=== PATIENT | female | born 1975 | race Caucasian/White ===

== ENCOUNTER → 2016-11-24 | Outpatient (CLI) | payer MEDICARE ==
--- NOTE | 2016-11-24 14:30 | XR ---
EXAMINATION TYPE: XR lumbar spine 2 or 3V DATE OF EXAM: 11/24/2016 2:21 PM CLINICAL HISTORY: pain TECHNIQUE: Three views of the lumbar spine are submitted. COMPARISON: None. FINDINGS: There are 5 lumbar type vertebral bodies identified. The lumbar spine shows satisfactory alignment w ithout evidence of acute fracture or dislocation. Vertebral body heights are within normal limits. Disc spaces are within normal limits. The overlying soft tissue appears unremarkable. IMPRESSION: No acute fracture or dislocation is seen in the lumbar spine. ICD 10 NO FRACTURE, INITIAL EVALUATION
== END | disposition home or self-care (01) ==
LOC: RADXRMAIN 13:57
PROVIDERS: ATTEND Physician Assistant
DX: M54.5 Low back pain (principal)
CPT/HCPCS: 72100

== ENCOUNTER 2017-09-13 21:14 | Emergency (ER) | payer MEDICARE ==
[2017-09-13] MEDS ORDERED: ALBUTEROL NEBULIZED 2.5 MG/3 ML INHALATION STA (21:33)
[2017-09-13] MEDS ORDERED: IPRATROPIUM-ALBUTEROL 3 ML NEB INHALATION STA (21:38)
[2017-09-13] MEDS ORDERED: SODIUM CHLORIDE 0.9% 1,000 ML IV ONE (21:38)
[2017-09-13] MEDS ORDERED: methylPREDNISolone SOD SUCCI 125 MG/2 ML VIAL IV STA (21:38)
--- NOTE | 2017-09-13 21:51 | ED ---
General Adult HPI - General Chief complaint: Upper Respiratory Infection Stated complaint: cough,vomiting Time Seen by Provider: 09/13/17 21:30 Source: patient Mode of arrival: ambulatory Limitations: no limitations - History of Present Illness Initial comments: Is a 42-year-old female with a history of myasthenia gravis who presents emergency department for cough, nasal congestion, earaches. She states is been going on for the last week. She states it has not improved. She went to an urgent care and got doxycycline, albuterol, and prednisone 2 days ago however has not had any improvement in her symptoms so she decided to come in today. She denies any fevers or chills. No sick contacts. No abdominal pain. She does state that she coughs so hard sometimes that she vomits. No other acute complaints. - Related Data Home Medications Medication Instructions Recorded Confirmed Gamunex 75 gram IV Q14D 03/07/14 09/13/17 Sertraline [Zoloft] 200 mg PO DAILY 03/07/14 09/13/17 Albuterol Inhaler [Ventolin Hfa 1 - 2 puff INHALATION RT-Q6H PRN 09/13/17 Inhaler] Benzonatate [Tessalon Perles] 100 mg PO TID PRN 09/13/17 09/13/17 Doxycycline Monohydrate [Monodox] 100 mg PO Q12HR 09/13/17 09/13/17 Topiramate [Topamax] 200 mg PO Q8H 09/13/17 09/13/17 busPIRone HCL 15 mg PO BID 09/13/17 09/13/17 clonazePAM [KlonoPIN] 2 mg PO HS 09/13/17 09/13/17 cycloSPORINE [cycloSPORINE (GEQ 100 mg PO BID 09/13/17 09/13/17 for SandIMMUNE)] predniSONE See Taper PO DIRECTED 09/13/17 09/13/17 traZODone HCL 200 mg PO HS 09/13/17 09/13/17 Previous Rx's Medication Instructions Recorded Azithromycin [Zithromax Tri-William] 500 mg PO DAILY #10 tab 09/13/17 guaiFENesin-Coden 100-10MG/5ML 10 ml PO Q6HR PRN #160 ml 09/13/17 [Robitussin AC] Allergies Allergy/AdvReac Type Severity Reaction Status Date / Time No Known Allergies Allergy Verified 09/13/17 21:43 Review of Systems ROS Statement: Those systems with pertinent positive or pertinent negative responses have been documented in the HPI. ROS Other: All systems not noted in ROS Statement are negative. Past Medical History Past Medical History: Musculoskeletal Disorder Additional Past Medical History / Comment(s): 3 herniated discs, myasthenia gravis History of Any Multi-Drug Resistant Organisms: None Reported Past Surgical History: Hernia Repair, Hysterectomy, Orthopedic Surgery, Tonsillectomy, Tubal Ligation Additional Past Surgical History / Comment(s): knee surg, had thymectomy Past Anesthesia/Blood Transfusion Reactions: No Reported Reaction Past Psychological History: Depression Smoking Status: Never smoker Past Alcohol Use History: Occasional Past Drug Use History: None Reported - Past Family History Father Family Medical History: Cancer General Exam - General Exam Comments Initial Comments: Constitutional: Awake alert Appears comfortable Head: Normocephalic atraumatic Eyes: no conjunctival injection No scleral icterus EOMI ENT: Oropharynx is not erythematous, there is mild rhinorrhea and nasal mucosal edema, TMs clear bilaterally Neck: No JVD Supple Heart: Regular rate rhythm normal S1-S2 no murmurs Lungs: Crackles passed a cough with expiratory wheezes Abdomen: Soft nondistended nontender Extremities: Non edematous DP pulses intact Radial pulses intact Neuro: A&Ox3 No focal neurologic deficits Psych: Appropriate mood and affect Limitations: no limitations Course Vital Signs 09/13/17 09/13/17 09/13/17 21:24 21:45 22:02 Temperature 97.2 F L Pulse Rate 91 92 96 Respiratory 18 Rate Blood Pressure 140/85 O2 Sat by Pulse 100 Oximetry Medical Decision Making - Medical Decision Making Is a 42-year-old female who presented for cough and congestion for last week. X -rays performed and unremarkable. Patient is outside the window for Tamiflu and thus this was not checked. She was afebrile here. Due to her persistent coughing and paroxysms of coughing and concern for pertussis. Pertussis PCR was sent however the patient's antibiotic was switched from doxycycline to azithromycin 500 mg for the next 10 days. Was told to avoid young children. Was also given some cough medication for home. Told to monitor symptoms especially with her history of myasthenia gravis. If she had any worsening or changing symptoms she may return promptly to the emergency department. Family at bedside was also updated on this and agree with plan. All questions were answered. - Lab Data Result diagrams: 09/13/17 19:42 09/13/17 19:42 Lab Results 09/13/17 09/13/17 Range/Units 19:42 19:42 WBC 5.9 (3.8-10.6) k/uL RBC 4.27 (3.80-5.40) m/uL Hgb 13.3 (11.4-16.0) gm/dL Hct 40.2 (34.0-46.0) % MCV 94.2 (80.0-100.0) fL MCH 31.2 (25.0-35.0) pg MCHC 33.1 (31.0-37.0) g/dL RDW 15.0 (11.5-15.5) % Plt Count 274 (150-450) k/uL Neutrophils % 71 % Lymphocytes % 18 % Monocytes % 8 % Eosinophils % 0 % Basophils % 1 % Neutrophils # 4.2 (1.3-7.7) k/uL Lymphocytes # 1.0 (1.0-4.8) k/uL Monocytes # 0.5 (0-1.0) k/uL Eosinophils # 0.0 (0-0.7) k/uL Basophils # 0.0 (0-0.2) k/uL Poikilocytosis Slight Sodium 141 (137-145) mmol/L Potassium 3.9 (3.5-5.1) mmol/L Chloride 109 H (98-107) mmol/L Carbon Dioxide 19 L (22-30) mmol/L Anion Gap 13 mmol/L BUN 10 (7-17) mg/dL Creatinine 1.00 (0.52-1.04) mg/dL Est GFR (MDRD) Af Amer >60 (>60 ml/min/1.73 sqM) Est GFR (MDRD) Non-Af >60 (>60 ml/min/1.73 sqM) Glucose 93 (74-99) mg/dL Calcium 9.3 (8.4-10.2) mg/dL Total Bilirubin 0.4 (0.2-1.3) mg/dL AST 26 (14-36) U/L ALT 22 (9-52) U/L Alkaline Phosphatase 48 (38-126) U/L Total Protein 9.8 H (6.3-8.2) g/dL Albumin 4.2 (3.5-5.0) g/dL Disposition Clinical Impression: URI (upper respiratory infection), Cough Disposition: HOME SELF-CARE Condition: Stable Instructions: Upper Respiratory Infection (ED) Additional Instructions: Stop taking Doxycycline Prescriptions: Azithromycin [Zithromax Tri-William] 500 mg PO DAILY #10 tab guaiFENesin-Coden 100-10MG/5ML [Robitussin AC] 10 ml PO Q6HR PRN #160 ml PRN Reason: Cough Referrals: Tejinder Holt MD [Primary Care Provider] - 1-2 days
[2017-09-13 21:58] LABS: Basophils % (A) 1 %; Eosinophils % (A) 0 %; HCT 40.2 % (34.0-46.0); HGB 13.3 gm/dL (11.4-16.0); Lymphocytes % (A) 18 %; MCH 31.2 pg (25.0-35.0); MCHC 33.1 g/dL (31.0-37.0); MCV 94.2 fL (80.0-100.0); Mean Platelet Volume 8.3; Monocytes # (A) 0.5 k/uL (0-1.0); Monocytes % (A) 8 %; Neutrophils # (A) 4.2 k/uL (1.3-7.7); Neutrophils % (A) 71 %; Platelet Count 274 k/uL (150-450); Poikilocytosis Slight; RBC 4.27 m/uL (3.80-5.40); WBC 5.9 k/uL (3.8-10.6)
--- NOTE | 2017-09-13 22:25 | XR ---
EXAMINATION TYPE: XR chest 2V DATE OF EXAM: 09/13/2017 COMPARISON: NONE HISTORY: Cough TECHNIQUE: Frontal and lateral views of the chest are obtained. FINDINGS: Heart and mediastinum are normal. Lungs are clear. Costophrenic angles are clear. There ar e no hilar masses. There are sternal wires. There is left-sided central venous catheter with tip in t he right atrium. Bony thorax is intact. IMPRESSION: No active cardiopulmonary disease. Normal heart. No change. There has been apparent kassie arthur of old right sided central venous catheter compared to old exam.
[2017-09-13 22:29] LABS: Albumin 4.2 g/dL (3.5-5.0); Anion Gap 13 mmol/L; Calcium 9.3 mg/dL (8.4-10.2); Carbon Dioxide 19 mmol/L (22-30); Chloride 109 mmol/L (98-107); Glucose 93 mg/dL (74-99); Sodium 141 mmol/L (137-145); Total Bilirubin 0.4 mg/dL (0.2-1.3); Total Protein 9.8 g/dL (6.3-8.2)
[2017-09-13 22:33] LABS: ALT 22 U/L (9-52); AST 26 U/L (14-36); Alkaline Phosphatase 48 U/L (38-126); Blood Urea Nitrogen 10 mg/dL (7-17); Potassium 3.9 mmol/L (3.5-5.1)
[2017-09-13 23:17] VITALS: BP 136/87; PULSE 87; RESP 20; TEMP 98.7
[2017-09-16 10:27] LABS: Bordedella pertussis Not detected (Not detected); Bordetella holmesII Not detected (Not detected); Bordetella parapertussis Not detected (Not detected)
== END 2017-09-13 23:16 | disposition home or self-care (01) ==
LOC: EC 21:14
DX: J06.9 Acute upper respiratory infection, unspecified (principal); F32.9 Major depressive disorder, single episode, unspecified; Z79.52 Long term (current) use of systemic steroids; Z79.899 Other long term (current) drug therapy
CPT/HCPCS: 36415; 94640; 80053; 85025; 87798; 71020; 99284; 96374; 96361; J2930

== ENCOUNTER → 2017-11-12 | Outpatient (CLI) | payer MEDICARE ==
[2017-11-12 19:05] LABS: Basophils % (A) 1 %; Eosinophils # (A) 0.2 k/uL (0-0.7); Eosinophils % (A) 6 %; HCT 40.1 % (34.0-46.0); HGB 13.8 gm/dL (11.4-16.0); Lymphocytes # (A) 0.7 k/uL (1.0-4.8); Lymphocytes % (A) 27 %; MCH 31.4 pg (25.0-35.0); MCHC 34.4 g/dL (31.0-37.0); Mean Platelet Volume 8.3; Monocytes # (A) 0.3 k/uL (0-1.0); Monocytes % (A) 11 %; Neutrophils # (A) 1.5 k/uL (1.3-7.7); Neutrophils % (A) 53 %; Platelet Count 245 k/uL (150-450); Poikilocytosis Slight; RBC 4.41 m/uL (3.80-5.40); RDW 13.6 % (11.5-15.5); WBC 2.8 k/uL (3.8-10.6)
[2017-11-12 19:19] LABS: ALT 14 U/L (9-52); AST 17 U/L (14-36); Albumin 4.1 g/dL (3.5-5.0); Alkaline Phosphatase 45 U/L (38-126); Amylase 69 U/L (30-110); Anion Gap 11 mmol/L; Blood Urea Nitrogen 10 mg/dL (7-17); Calcium 8.9 mg/dL (8.4-10.2); Carbon Dioxide 20 mmol/L (22-30); Chloride 108 mmol/L (98-107); Cholesterol 166 mg/dL (<200); Glucose 78 mg/dL (74-99); HDL Cholesterol 29 mg/dL (40-60); LDL Cholesterol,Calculated 109 mg/dL (0-99); Lipase 257 U/L (23-300); Potassium 4.1 mmol/L (3.5-5.1); Sodium 139 mmol/L (137-145); Total Bilirubin 0.3 mg/dL (0.2-1.3); Total Protein 8.7 g/dL (6.3-8.2); Triglycerides 140 mg/dL (<150)
[2017-11-12 19:29] LABS: T4, Free (Free Thyroxine) 0.97 ng/dL (0.78-2.19)
[2017-11-13 01:27] LABS: Rheumatoid Factor <4 IU/mL (0-13)
[2017-11-13 12:46] LABS: ANA Pattern Centromere; ANA Pattern 2 See Footnote
== END | disposition home or self-care (01) ==
LOC: MMGSC 15:01
PROVIDERS: ATTEND Family Medicine
DX: Z00.00 Encounter for general adult medical examination without abnormal findings (principal); N39.0 Urinary tract infection, site not specified; R10.11 Right upper quadrant pain
CPT/HCPCS: 36415; 80053; 80061; 82150; 83690; 84439; 84443; 85025; 86038; 86039; 86431; 87086

== ENCOUNTER → 2017-11-27 | Outpatient (CLI) | payer MEDICARE ==
--- NOTE | 2017-11-27 11:11 | NM ---
EXAMINATION TYPE: NM hepatobiliary w CCK DATE OF EXAM: 11/27/2017 COMPARISON: NONE HISTORY: Pain TECHNIQUE: After the intravenous administration of 5.1 mCi Tc 99m Mebrofenin hepatobiliary scintigrap hy is performed. Immediate images post injection. FINDINGS: There is satisfactory initial accumulation of tracer by the liver. The gallbladder is visualized wit hin 6 minutes. The small bowel activity is noted within 20 minutes. At one hour CCK was administere d, patient was injected with 1.54 mcg of Kinevac, and gallbladder ejection fraction is calculated at 31 %. IMPRESSION: Diminished gallbladder ejection fraction which may reflect chronic cholecystitis and/or b iliary dyskinesia.
== END | disposition home or self-care (01) ==
LOC: RADNMMAIN 08:47
PROVIDERS: ATTEND Surgery
DX: K81.1 Chronic cholecystitis (principal); K82.8 Other specified diseases of gallbladder
CPT/HCPCS: 78227; A9537; J2805

== ENCOUNTER 2017-12-04 09:48 | Day surgery (SDC) | payer MEDICARE ==
[2017-12-03 08:48] VITALS: BMI 29.2
[~2017-12-04 09:48] MED LIST: DEXAMETHASONE SOD PHOSPHATE 10 MG/ML 1 ML VIAL IV ONE; HEPARIN SODIUM,PORCINE 5,000 UNIT/ML 1 ML VIAL SQ ONE; LACTATED RINGERS 1,000 ML IV SCH; MIDAZOLAM 2 MG/2 ML VIAL IV PRN; ONDANSETRON 4 MG/2 ML VIAL IVP ONE; SCOPOLAMINE 1.5MG/72HR PATCH TRANSDERM ONE; ceFAZolin IN SWFI 2 GM/20 ML SYRINGE IVP ONE
--- NOTE | 2017-12-04 11:58 | P.GSHP ---
History of Present Illness H&P Date: 12/04/17 Chief Complaint: Right upper quadrant pain This a 42-year-old female who's had complete the right quadrant pain. Her recent HIDA scan shows evidence of decreased ejection fraction consistent with biliary skin lesion and chronic cholecystitis. She presents today for laparoscopic cholecystectomy. Past Medical History Past Medical History: GERD/Reflux, Musculoskeletal Disorder Additional Past Medical History / Comment(s): 3 herniated discs, myasthenia gravis, hx migraines, History of Any Multi-Drug Resistant Organisms: None Reported Past Surgical History: Hernia Repair, Hysterectomy, Orthopedic Surgery, Tonsillectomy, Tubal Ligation Additional Past Surgical History / Comment(s): thymectomy, left knee arthroscopy , 3 port a cath/ 2 removed-currently has one Past Anesthesia/Blood Transfusion Reactions: No Reported Reaction Smoking Status: Never smoker - Past Family History Father Family Medical History: Cancer Medications and Allergies Home Medications Medication Instructions Recorded Confirmed Type Gamunex 75 gram IV Q14D 03/07/14 12/04/17 History Sertraline [Zoloft] 100 mg PO BID 03/07/14 12/04/17 History Albuterol Inhaler [Ventolin Hfa 1 - 2 puff INHALATION Q6H PRN 09/13/17 12/04/17 History Inhaler] busPIRone HCL 15 mg PO BID 09/13/17 12/03/17 History clonazePAM [KlonoPIN] 2 mg PO HS 09/13/17 12/03/17 History traZODone HCL 200 mg PO HS 09/13/17 12/03/17 History Ranitidine HCl [Zantac] 150 mg PO BID 12/03/17 12/04/17 History Topiramate [Topamax] 100 mg PO BID 12/03/17 12/03/17 History Allergies Allergy/AdvReac Type Severity Reaction Status Date / Time No Known Allergies Allergy Verified 12/04/17 10:57 Surgical - Exam Vital Signs Temp Pulse Resp BP Pulse Ox 97.0 F L 70 16 102/77 97 12/04/17 10:58 12/04/17 10:58 12/04/17 10:58 12/04/17 10:58 12/04/17 10:58 - General well developed, no distress - Eyes PERRL - ENT normal pinna - Neck no masses - Respiratory normal expansion - Cardiovascular Rhythm: regular - Abdomen Abdomen: soft, non tender Assessment and Plan Assessment: Chronic cholecystitis Abnormal HIDA scan We'll perform laparoscopic cholecystectomy.
[2017-12-04] MEDS ORDERED: fentaNYL (PF) 50 MCG/ML 2 ML AMP ONE (12:29)
[2017-12-04] MEDS ORDERED: MIDAZOLAM 2 MG/2 ML VIAL ONE (12:29)
[2017-12-04] MEDS ORDERED: KETOROLAC 30 MG/ML 1 ML VIAL ONE (12:29)
[2017-12-04] MEDS ORDERED: GLYCOPYRROLATE 0.2 MG/ML 2 ML VIAL ONE (12:29)
[2017-12-04] MEDS ORDERED: SUCCINYLCHOLINE CHLORIDE 100 MG/5 ML SYR IV ONE (12:29)
[2017-12-04] MEDS ORDERED: PROPOFOL 10 MG/ML 20 ML VIAL IV ONE (12:29)
[2017-12-04] MEDS ORDERED: LIDOCAINE 1% INJ 10MG/ML (20 ML MDV) ONE (12:29)
[2017-12-04] MEDS ORDERED: NEOSTIGMINE 1 MG/ML 10 ML VIAL ONE (12:29)
[2017-12-04] MEDS ORDERED: BUPIVACAINE (PF) 0.25% 30 ML VIAL SQ ONE (12:46)
[2017-12-04 13:15] VITALS: TEMP 97.5
--- NOTE | 2017-12-04 13:15 | P.OP ---
Date of Procedure: 12/04/17 Preoperative Diagnosis: Cholecystitis Postoperative Diagnosis: Cholecystitis Procedure(s) Performed: Laparoscopic cholecystectomy Anesthesia: SULMA Surgeon: Leno Lei Estimated Blood Loss (ml): 5 Pathology: other (Gallbladder) Condition: stable Disposition: PACU Description of Procedure: The patient was placed on the operating table. The patient received a general endotracheal tube anesthesia. The patients abdomen was prepped and draped in the usual sterile fashion. Through an infraumbilical stab incision, the fascia of the anterior abdominal wall was grasped with a pair of Kochers and then the Veress needle was placed in the peritoneal cavity. Position of the Veress needle was confirmed with positive drop test. The abdomen was then insufflated. After adequate insufflation, the 10 mm trocar was placed in the peritoneal cavity. Following this the laparoscope was placed in the peritoneal cavity. The patient was placed in the head-up, right side up position and then a 5 mm trocar was placed in the right lateral and right subcostal position under direct visualization. A 8 mm trocar was placed in the epigastric position. The gallbladder was grasped in the fundus and infundibulum. Traction on the gallbladder was placed in the lateral and the cephalad positions. The triangle of Calot was visualized.. The cystic duct was bluntly dissected until the union of the cystic duct and common bile duct was seen. The cystic duct was then divided and sealed with the Harmonic scissors. A PDS Endoloop was then placed throughout the cystic duct stump. The cystic artery divided and sealed with the Harmonic scissors. The gallbladder was then removed from the liver bed using Harmonic scissors. The gallbladder was then extracted through the epigastric port site. Operative field was checked for any bleeding spots and Harmonic scissors was used to coagulate the liver bed. The abdomen was irrigated. The trocars were removed. The skin was closed using interrupted 3-0 Vicryl suture. Dermabond dressing were applied. The patient tolerated the procedure well.
[2017-12-04] MEDS: fentaNYL (PF) 50 MCG/ML 2 ML AMP IV PRN ×2 (13:19→13:24)
[2017-12-04 13:31] VITALS: RESP 16
[2017-12-04] MEDS ORDERED: ONDANSETRON 4 MG/2 ML VIAL IVP ONE (13:39)
[2017-12-04] MEDS ORDERED: diphenhydrAMINE 50 MG/ML 1 ML VIAL IVP ONE ×2 (13:40→13:51)
[2017-12-04] MEDS ORDERED: LACTATED RINGERS 1,000 ML IV ONE (14:16)
[2017-12-04] MEDS ORDERED: HYDROcodone/APAP 7.5-325MG 1 EACH TAB PO ONE (14:26)
[2017-12-04 15:10] VITALS: BP 101/60; PULSE 55
== END 2017-12-04 15:25 | disposition home or self-care (01) ==
LOC: OR 09:48
PROVIDERS: ATTEND Surgery
DX: K81.1 Chronic cholecystitis (principal); K21.9 Gastro-esophageal reflux disease without esophagitis; G70.00 Myasthenia gravis without (acute) exacerbation; Z95.828 Presence of other vascular implants and grafts; Z79.899 Other long term (current) drug therapy
CPT/HCPCS: 47562; 88304; J2250; J1200; J1644; J1100; J2710; J2405; J2001; J3010; J1885; J0330; J2704; J0690

== ENCOUNTER → 2018-01-04 | Outpatient (CLI) | payer MEDICARE ==
--- NOTE | 2018-01-05 13:35 | MM ---
Reason for exam: screening (asymptomatic). Last mammogram was performed 1 year and 8 months ago. History: Family history of breast cancer in paternal aunt at age 70, breast cancer in paternal grandmother at age 70, breast cancer in maternal aunt at age 70, and breast cancer in maternal grandmother at age 70. Took hormonal contraceptives for 17 years beginning at age 18. Physical Findings: A clinical breast exam by your physician is recommended on an annual basis and results should be correlated with mammographic findings. MG 3D Screening Mammo W/Cad Bilateral CC and MLO view(s) were taken. Prior study comparison: April 23, 2016, bilateral MG 3d screening mammo w/cad. January 17, 2013, CAD bilateral diagnostic mammogram. The breast tissue is heterogeneously dense. This may lower the sensitivity of mammography. There is no discrete abnormality. ASSESSMENT: Negative, BI-RAD 1 RECOMMENDATION: Routine screening mammogram of both breasts in 1 year.
== END | disposition home or self-care (01) ==
LOC: RADMAMWWP 14:30
PROVIDERS: ATTEND Family Medicine
DX: Z12.31 Encounter for screening mammogram for malignant neoplasm of breast (principal)
CPT/HCPCS: 77063; 77067

== ENCOUNTER 2018-11-15 16:36 | Observation (INO) | payer MEDICARE ==
[2018-11-15] MEDS ORDERED: ASPIRIN 81 MG PO STA (17:03)
[2018-11-15] MEDS ORDERED: FAMOTIDINE 20 MG/2 ML VIAL IV STA (17:12)
--- NOTE | 2018-11-15 17:14 | ED ---
General Adult HPI <Mark Echols - Last Filed: 11/15/18 19:03> - General Source: patient, RN notes reviewed Mode of arrival: ambulatory Limitations: no limitations <Shelton Hendrix - Last Filed: 11/15/18 20:13> - General Chief complaint: Chest Pain Stated complaint: chest pain Time Seen by Provider: 11/15/18 17:01 - History of Present Illness Initial comments: 43-year-old female with a past medical history of GERD and myasthenia gravis presents to the emergency department for a chief complaint of chest pain 12 hours. Patient describes the pain as a pressure in her chest that radiates to her left arm. Patient states this has been constant since this morning. Patient denies pain radiating to her back or neck. Patient does admit to nausea states that she sits up this nausea feels worse. Patient does have a history of GERD and states she has not had this chest pain with GERD before however she does feel like she has heartburn. Patient does admit to vomiting twice earlier today. Patient denies past personal cardiac history. She denies any family history of cardiac disease. Patient denies smoking history, hyperlipidemia, hypertension. Patient has no other complaints at this time including shortness of breath, chest pain, abdominal pain, nausea or vomiting, headache, or visual changes. (Shelton Hendrix) - Related Data Home Medications Medication Instructions Recorded Confirmed Gamunex 75 gram IV Q14D 03/07/14 11/15/18 Sertraline [Zoloft] 100 mg PO BID 03/07/14 11/15/18 clonazePAM [KlonoPIN] 1 mg PO BID 09/13/17 11/15/18 traZODone HCL 200 mg PO HS 09/13/17 11/15/18 Topiramate [Topamax] 100 mg PO BID 12/03/17 11/15/18 Aspirin 325 mg PO DAILY 11/15/18 11/15/18 Allergies Allergy/AdvReac Type Severity Reaction Status Date / Time No Known Allergies Allergy Verified 11/15/18 17:48 Review of Systems ROS Other: All systems not noted in ROS Statement are negative. <Mark Echols - Last Filed: 11/15/18 19:03> ROS Other: All systems not noted in ROS Statement are negative. <Shelton Hendrix - Last Filed: 11/15/18 20:13> ROS Statement: Those systems with pertinent positive or pertinent negative responses have been documented in the HPI. Past Medical History Past Medical History: GERD/Reflux, Musculoskeletal Disorder Additional Past Medical History / Comment(s): 3 herniated discs, myasthenia gravis, hx migraines, History of Any Multi-Drug Resistant Organisms: None Reported Past Surgical History: Hernia Repair, Hysterectomy, Orthopedic Surgery, Tonsillectomy, Tubal Ligation Additional Past Surgical History / Comment(s): thymectomy, left knee arthroscopy , 3 port a cath/ 2 removed-currently has one Past Anesthesia/Blood Transfusion Reactions: No Reported Reaction Past Psychological History: Depression Smoking Status: Never smoker Past Alcohol Use History: None Reported Past Drug Use History: None Reported - Past Family History Father Family Medical History: Cancer <Shelton Hendrix - Last Filed: 11/15/18 20:13> General Exam Limitations: no limitations General appearance: alert, in no apparent distress Head exam: Present: atraumatic, normocephalic, normal inspection Eye exam: Present: normal appearance, PERRL, EOMI. Absent: scleral icterus, conjunctival injection, periorbital swelling ENT exam: Present: normal exam, mucous membranes moist, normal external ear exam Neck exam: Present: normal inspection, full ROM. Absent: tenderness, meningismus Respiratory exam: Present: normal lung sounds bilaterally. Absent: respiratory distress, wheezes, rales, rhonchi, stridor Cardiovascular Exam: Present: regular rate, normal rhythm, normal heart sounds. Absent: systolic murmur, diastolic murmur, rubs, gallop, clicks GI/Abdominal exam: Present: soft, normal bowel sounds. Absent: distended, tenderness (no upper abdominal tenderness noted. no lower abdominal tenderness) , guarding, rebound, rigid Neurological exam: Present: alert, oriented X3, CN II-XII intact Psychiatric exam: Present: normal affect, normal mood <Shelton Hendrix - Last Filed: 11/15/18 20:13> Course <Mark Echols - Last Filed: 11/15/18 19:03> <Shelton Hendrix - Last Filed: 11/15/18 20:13> Vital Signs 11/15/18 11/15/18 11/15/18 16:40 17:48 19:20 Temperature 97.7 F 97.7 F 97.9 F Pulse Rate 84 85 78 Respiratory 18 16 18 Rate Blood Pressure 157/81 131/95 103/75 O2 Sat by Pulse 100 98 99 Oximetry - Reevaluation(s) Reevaluation #1: 11/15/18 19:04 ARANZA supervision: I proceeded [id number] evaluation the patient I did discuss case with Dr. Bliss patient will be admitted for evaluation of chest pain consistent with unstable angina. I do agree with the assessment and plan (Mark Echols) EKG Findings - EKG Comments: EKG Findings:: EKG shows a normal sinus rhythm with a ventricular rate of 83, AK interval 136, QTC 444, no evidence of ST elevation or depression. <Shelton Hendrix - Last Filed: 11/15/18 20:13> Medical Decision Making - Lab Data Result diagrams: 11/15/18 17:30 11/15/18 17:30 <Mark Echols - Last Filed: 11/15/18 19:03> - Lab Data Result diagrams: 11/15/18 17:30 11/15/18 17:30 <Shelton Hendrix - Last Filed: 11/15/18 20:13> - Medical Decision Making 43-year-old female presents to the emergency department for a chief complaint of chest pressure with radiating pain to the left arm 12 hours. Denies radiating pain to the back or neck. Does admit to nausea as well as vomiting earlier this morning. Patient states she does have a history of heartburn but has never had chest pressure with this. No family history of cardiac disease or personal history of cardiac disease. Denies smoking hyperlipidemia, hypertension. No significant shortness of breath. Exam is generally under remarkable. No abdominal tenderness. There is some reproduciblilty noted to the left chest. EKG shows a normal sinus rhythm with a ventricular rate of [address] elevation or depression. CBC CMP are unremarkable. Troponin less than 0.012. D-dimer 0.29. Within normal limits. Amylase and lipase unremarkable. Given the nature patient's pain including pressure as well as her age she will be admitted for trending troponins and cardiology consultation (Shelton Hendrix) - Lab Data Lab Results 11/15/18 11/15/18 11/15/18 Range/Units 17:30 17:30 17:30 WBC 4.9 (3.8-10.6) k/uL RBC 4.71 (3.80-5.40) m/uL Hgb 14.5 (11.4-16.0) gm/dL Hct 44.1 (34.0-46.0) % MCV 93.6 (80.0-100.0) fL MCH 30.8 (25.0-35.0) pg MCHC 32.9 (31.0-37.0) g/dL RDW 12.9 (11.5-15.5) % Plt Count 230 (150-450) k/uL Neutrophils % 62 % Lymphocytes % 23 % Monocytes % 10 % Eosinophils % 3 % Basophils % 0 % Neutrophils # 3.0 (1.3-7.7) k/uL Lymphocytes # 1.1 (1.0-4.8) k/uL Monocytes # 0.5 (0-1.0) k/uL Eosinophils # 0.2 (0-0.7) k/uL Basophils # 0.0 (0-0.2) k/uL PT 10.2 (9.0-12.0) sec INR 0.9 (<1.2) APTT 22.0 (22.0-30.0) sec D-Dimer 0.29 (<0.60) mg/L FEU Sodium 138 (137-145) mmol/L Potassium 4.2 (3.5-5.1) mmol/L Chloride 109 H (98-107) mmol/L Carbon Dioxide 22 (22-30) mmol/L Anion Gap 7 mmol/L BUN 16 (7-17) mg/dL Creatinine 1.05 H (0.52-1.04) mg/dL Est GFR (CKD-EPI)AfAm 76 (>60 ml/min/1.73 sqM) Est GFR (CKD-EPI)NonAf 66 (>60 ml/min/1.73 sqM) Glucose 86 (74-99) mg/dL Calcium 9.0 (8.4-10.2) mg/dL Magnesium 2.0 (1.6-2.3) mg/dL Total Bilirubin 0.3 (0.2-1.3) mg/dL AST 17 (14-36) U/L ALT 22 (9-52) U/L Alkaline Phosphatase 48 (38-126) U/L Troponin I (0.000-0.034) ng/mL Total Protein 8.6 H (6.3-8.2) g/dL Albumin 4.1 (3.5-5.0) g/dL Amylase 69 (30-110) U/L Lipase 302 H (23-300) U/L 11/15/18 Range/Units 17:30 WBC (3.8-10.6) k/uL RBC (3.80-5.40) m/uL Hgb (11.4-16.0) gm/dL Hct (34.0-46.0) % MCV (80.0-100.0) fL MCH (25.0-35.0) pg MCHC (31.0-37.0) g/dL RDW (11.5-15.5) % Plt Count (150-450) k/uL Neutrophils % % Lymphocytes % % Monocytes % % Eosinophils % % Basophils % % Neutrophils # (1.3-7.7) k/uL Lymphocytes # (1.0-4.8) k/uL Monocytes # (0-1.0) k/uL Eosinophils # (0-0.7) k/uL Basophils # (0-0.2) k/uL PT (9.0-12.0) sec INR (<1.2) APTT (22.0-30.0) sec D-Dimer (<0.60) mg/L FEU Sodium (137-145) mmol/L Potassium (3.5-5.1) mmol/L Chloride (98-107) mmol/L Carbon Dioxide (22-30) mmol/L Anion Gap mmol/L BUN (7-17) mg/dL Creatinine (0.52-1.04) mg/dL Est GFR (CKD-EPI)AfAm (>60 ml/min/1.73 sqM) Est GFR (CKD-EPI)NonAf (>60 ml/min/1.73 sqM) Glucose (74-99) mg/dL Calcium (8.4-10.2) mg/dL Magnesium (1.6-2.3) mg/dL Total Bilirubin (0.2-1.3) mg/dL AST (14-36) U/L ALT (9-52) U/L Alkaline Phosphatase (38-126) U/L Troponin I <0.012 (0.000-0.034) ng/mL Total Protein (6.3-8.2) g/dL Albumin (3.5-5.0) g/dL Amylase (30-110) U/L Lipase (23-300) U/L Disposition <Mark Echols - Last Filed: 11/15/18 19:03> Is patient prescribed a controlled substance at d/c from ED?: No Time of Disposition: 19:02 <Shelton Hendrix - Last Filed: 11/15/18 20:13> Clinical Impression: Chest pain Disposition: ADMITTED IP TO THIS HOSP Condition: Fair
--- NOTE | 2018-11-15 18:02 | XR ---
EXAMINATION TYPE: XR chest 2V DATE OF EXAM: 11/15/2018 COMPARISON: Chest x-ray September 13, 2017 HISTORY: Chest pain. TECHNIQUE: Frontal and lateral views of the chest are obtained. FINDINGS: There is stable left subclavian Mediport catheter. Overlying sternal wires are redemonstrat ed. There is no focal air space opacity, pleural effusion, or pneumothorax seen. The cardiac silhou ette size is within normal limits. The osseous structures are intact. IMPRESSION: No acute cardiopulmonary process. No significant change from prior.
[2018-11-15] MEDS ORDERED: MORPHINE SULFATE 2 MG/ML SYRINGE IVP STA (18:05)
[2018-11-15 18:07] LABS: Albumin 4.1 g/dL (3.5-5.0); D-Dimer 0.29 mg/L FEU (<0.60); INR 0.9 (<1.2); Potassium 4.2 mmol/L (3.5-5.1); Prothrombin Time 10.2 sec (9.0-12.0); Total Bilirubin 0.3 mg/dL (0.2-1.3); Total Protein 8.6 g/dL (6.3-8.2)
[2018-11-15 18:08] LABS: Basophils % (A) 0 %; Eosinophils # (A) 0.2 k/uL (0-0.7); Eosinophils % (A) 3 %; HCT 44.1 % (34.0-46.0); HGB 14.5 gm/dL (11.4-16.0); Lymphocytes # (A) 1.1 k/uL (1.0-4.8); Lymphocytes % (A) 23 %; MCH 30.8 pg (25.0-35.0); MCHC 32.9 g/dL (31.0-37.0); MCV 93.6 fL (80.0-100.0); Mean Platelet Volume 7.1; Monocytes # (A) 0.5 k/uL (0-1.0); Monocytes % (A) 10 %; Neutrophils % (A) 62 %; Platelet Count 230 k/uL (150-450); RBC 4.71 m/uL (3.80-5.40); RDW 12.9 % (11.5-15.5); WBC 4.9 k/uL (3.8-10.6)
[2018-11-15] MEDS ORDERED: NITROGLYCERIN SL TABS 0.4 MG TAB SUBLINGUAL PRN (18:58)
[2018-11-15] MEDS ORDERED: MORPHINE SULFATE 2 MG/ML SYRINGE IVP PRN (19:00)
[2018-11-15] MEDS ORDERED: ONDANSETRON 4 MG/2 ML VIAL IVP PRN (19:01)
[2018-11-15] MEDS ORDERED: traZODone HCL 100 MG TAB PO SCH (21:00)
--- NOTE | 2018-11-15 21:17 | P.HPIM ---
History of Present Illness H&P Date: 11/15/18 Chief Complaint: chest pain 43 year old female with history of MG, GERD patient presented with constant left sided chest pain, 8/10 in severity , pressure like in nature with stabbing pain when taking deep breath or pressing against her left chest, pain has been persistent , radiating to left shoulder and neck, associated with nausea, vomiting once NBNB, light headedness, denies any sweating or palpitations, denies any injuries, coughing or similar pain in the past. denies any fevers, or chills. she reports that pain gets worse when leaning forward, but pain does not resolve with rest. She claims that she woke up with this pain, and has lasted until now at time of interview 8 PM for about 12 hours now , she was only able to get some relief with morphine in the ED and is requesting more for later tonight. later today, she was driving to the grocery store when pain worsened and now was associated with SOB, her mother suggested to her that she should go to the hospital. She has history of MG, and last IVIg dose was Thursday which she gets every two weeks. She denies any smoking, or cardiac history. no family history of premature CAD. She reports that normally her BP is in the 90/60 range. initial workup in the ED was unremarkable, she was admitted under observation Review of Systems Pertinent positives as noted in HPI. All other systems were reviewed and are negative Past Medical History Past Medical History: GERD/Reflux, Musculoskeletal Disorder Additional Past Medical History / Comment(s): 3 herniated discs, myasthenia gravis, hx migraines, History of Any Multi-Drug Resistant Organisms: None Reported Past Surgical History: Hernia Repair, Hysterectomy, Orthopedic Surgery, Tonsillectomy, Tubal Ligation Additional Past Surgical History / Comment(s): thymectomy, left knee arthroscopy , 3 port a cath/ 2 removed-currently has one Past Anesthesia/Blood Transfusion Reactions: No Reported Reaction Past Psychological History: Depression Smoking Status: Never smoker Past Alcohol Use History: None Reported Past Drug Use History: None Reported - Past Family History Father Family Medical History: Cancer Medications and Allergies Home Medications Medication Instructions Recorded Confirmed Type Gamunex 75 gram IV Q14D 03/07/14 11/15/18 History Sertraline [Zoloft] 100 mg PO BID 03/07/14 11/15/18 History clonazePAM [KlonoPIN] 1 mg PO BID 09/13/17 11/15/18 History traZODone HCL 200 mg PO HS 09/13/17 11/15/18 History Topiramate [Topamax] 100 mg PO BID 12/03/17 11/15/18 History Aspirin 325 mg PO DAILY 11/15/18 11/15/18 History Allergies Allergy/AdvReac Type Severity Reaction Status Date / Time No Known Allergies Allergy Verified 11/15/18 17:48 Physical Exam Vitals: Vital Signs Temp Pulse Pulse Resp BP BP Pulse Ox 11/15/18 20:02 99 11/15/18 20:00 97.7 F 86 16 111/78 99 11/15/18 19:20 97.9 F 78 18 103/75 99 11/15/18 17:48 97.7 F 85 16 131/95 98 11/15/18 16:40 97.7 F 84 18 157/81 100 Intake and Output 11/15/18 11/15/18 11/15/18 06:59 14:59 22:59 Other: Weight 81.647 kg Constitutional: No acute distress, conversant, pleasant Eyes: Anicteric sclerae, moist conjunctiva, no lid-lag Pupils equal round reactive to light ENMT: NC/AT Oropharynx clear, no erythema, exudates Neck: Supple, FROM, no masses, or JVD No carotid bruits No thyromegaly Lungs: Clear to auscultation Clear to percussion Normal respiratory effort, no accessory muscle use Cardiovascular: Heart regular in rate and rhythm, No murmurs, gallops, or rubs No peripheral edema Abdominal: Soft Nontender, no guarding, rebound or rigidity Abdomen moving with respiration Normoactive bowel sounds No hepatomegaly, No splenomegaly No palpable mass No abdominal wall hernia noted Skin: Normal temperature, tone, texture, turgor No induration No subcutaneous nodules No rash, lesions No ulcers Extremities: No digital cyanosis No clubbing Pedal pulses intact and symmetrical Radial pulses intact and symmetrical No calf tenderness Psychiatric: Alert and oriented to person, place and time Appropriate affect fair judgment Neuro Muscles Strength 5/5 in all 4 extremities Sensation to light touch grossly present throughout Cranial nerves II-XII grossly intact No focal sensory deficits Lymphatics: no palpable cervical or supraclavicular , or inguinal lymph nodes Results CBC & Chem 7: 11/15/18 17:30 11/15/18 17:30 Labs: Abnormal Lab Results - Last 24 Hours (Table) 11/15/18 Range/Units 17:30 Chloride 109 H (98-107) mmol/L Creatinine 1.05 H (0.52-1.04) mg/dL Total Protein 8.6 H (6.3-8.2) g/dL Lipase 302 H (23-300) U/L Assessment and Plan Assessment: 43-year-old female with history of myasthenia gravis and GERD admitted under observation with anticipated length of stay less than 48 hours for chest pain rule out acute coronary syndrome. Patient denies any history of hypertension hyperlipidemia or smoking denies any history of premature cardiac disease in her family. Patient described chest pain with atypical features and component of pleuritic chest pain currently her symptoms are controlled with morphine. Initial workup in the ED was unremarkable Plan: Atypical chest pain rule out ACS Aspirin Check lipid profile Follow-up troponins Check EKG if patient continues to have chest pain Cardiology consult Pain control with morphine History of myasthenia gravis continue with outpatient follow-up and IVIG History of GERD Continue with PPI DVT to prophylaxis heparin subcu 3 times a day Surrogate decision-maker: Patient's sister CODE STATUS: Full code Discussed with: Patient, ER, RN Anticipated discharge: <[address]: home A total of 55 minutes was spent on the care of this complex patient more than 50 % of the time was spent in counseling and care coordination.
[2018-11-15] MEDS: FAMOTIDINE 20 MG/2 ML VIAL IV SCH (22:14)
[2018-11-15] MEDS: clonazePAM 1 MG TAB PO SCH (22:14)
[2018-11-15] MEDS: SERTRALINE 100 MG TAB PO SCH ×2 (22:15→22:21)
[2018-11-15] MEDS: TOPIRAMATE 100 MG TAB PO SCH (22:16)
[2018-11-15] MEDS: PANTOPRAZOLE 40 MG TABLET PO SCH (22:16)
[2018-11-16] MEDS: HEPARIN SODIUM,PORCINE 5,000 UNIT/ML 1 ML VIAL SQ SCH ×3 (00:11→14:01)
[2018-11-16 06:19] LABS: Cholesterol 168 mg/dL (<200); HDL Cholesterol 31 mg/dL (40-60); LDL Cholesterol,Calculated 81 mg/dL (0-99); Triglycerides 278 mg/dL (<150)
[2018-11-16] MEDS ORDERED: DOBUTamine DRIP for NUC MED 500 MG in DEXTROSE/WATER 1 250ML.BAG IV ONE (08:06)
[2018-11-16 08:31] LABS: C Reactive Protein 6.2 mg/L (<10.0)
[2018-11-16] MEDS ORDERED: ASPIRIN 325 MG TAB PO SCH (09:00)
--- NOTE | 2018-11-16 09:43 | P.CRDCN ---
History of Present Illness History of present illness: This is a pleasant 43-year-old female past medical history significant for gastroesophageal reflux disease, myasthenia gravis and depression. She denies history of coronary artery disease, hypertension, diabetes mellitus or dyslipidemia. 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 We have been asked to see her in consultation for chest pain. She states she woke up yesterday with a pressure sensation in the left precordial region with radiation to the left shoulder, down the left arm and into the throat and neck. Associated with shortness of breath, nausea and vomiting x1 yesterday. She states this was intense all day and was worse when she would lean forward. Upon arrival to ED she was given morphine and pepcid which helped her pain but it continued to come back intermittently through the night. Currently she is chest pain free and nausea has subsided as well. EKG reveals sinus mechanism with no acute ST or T wave abnormalities noted. Chest x-ray is negative for an acute cardiopulmonary process. Laboratory data reviewed, WBC 4.9, hemoglobin 14.5, platelets 230, d-dimer 0.29 , sodium 138, potassium 4.2, creatinine 1.05, magnesium 2.0, cardiac enzymes negative 3, C-reactive protein 6.2, LDL 81, HDL 31 lipase on admission 300 and to repeat this morning 83. Current cardiac medications include aspirin 81 mg daily. At the time of my exam: CONSTITUTIONAL: Denies fever. Denies chills. EYES: Denies blurred vision. Denies vision changes. Denies eye pain. EARS, NOSE, MOUTH & THROAT: Denies headache. Denies sore throat. Denies ear pain. CARDIOVASCULAR: Denies chest pain. Denies shortness of breath. Denies orthopnea. Denies PND. Denies palpitations. RESPIRATORY: Denies cough. GASTROINTESTINAL: Denies abdominal pain. Denies diarrhea. Denies constipation. Denies nausea. Denies vomiting. MUSCULOSKELETAL: Denies myalgias. INTEGUMENTARY: Denies pruitis. Denies rash. NEUROLOGIC: Denies numbness. Denies tingling. Denies weakness. PSYCHIATRIC: Denies anxiety. Denies depression. ENDOCRINE: Denies fatigue. Denies weight change. Denies polydipsia. Denies polyurina. GENITOURINARY: Denies burning, hematuria or urgency with micturation. HEMATOLOGIC: Denies history of anemia. Denies bleeding. Blood pressure 104/71 heart rate 85 afebrile maintaining oxygen saturation on room air GENERAL: This is a 43-year-old female in no apparent distress at the time of my examination. HEENT: Head is atraumatic, normocephalic. Pupils are equal, round. Sclerae anicteric. Conjunctivae are clear. Mucous membranes of the mouth are moist. Neck is supple. There is no jugular venous distention. No carotid bruit is heard. LUNGS: Clear to auscultation no wheezes, rales or rhonchi. No chest wall tenderness is noted on palpation or with deep breathing. HEART: Regular rate and rhythm without murmurs, rubs or gallops. S1 and S2 heard. ABDOMEN: Soft, nontender. Bowel sounds are heard. No organomegaly noted. EXTREMITIES: No evidence of peripheral edema and no calf tenderness noted. VASCULAR: Radial and dorsalis pedis pulses palpated, no evidence of clubbing. NEUROLOGIC: Patient is awake, alert and oriented x3. ASSESSMENT Chest pain, atypical for angina. An acute coronary event has been ruled out. Elevated lipase with nausea and vomiting. Myasthenia gravis Gastroesophageal reflux disease PLAN An acute coronary event has been ruled out. Check c-reactive protein and ESR, obtain 2D echocardiogram and doppler study to assess cardiac structure and function. Rule out pericarditis, although no EKG evidence of such. Perform dobutamine stress echocardiogram to assess for stress induced ischemia. Thank you kindly for this consultation. Nurse Practitioner note has been reviewed, I agree with a documented findings and plan of care. Patient was seen and examined. Past Medical History Past Medical History: GERD/Reflux, Musculoskeletal Disorder Additional Past Medical History / Comment(s): 3 herniated discs, myasthenia gravis, hx migraines, History of Any Multi-Drug Resistant Organisms: None Reported Past Surgical History: Hernia Repair, Hysterectomy, Orthopedic Surgery, Tonsillectomy, Tubal Ligation Additional Past Surgical History / Comment(s): thymectomy, left knee arthroscopy , 3 port a cath/ 2 removed-currently has one Past Anesthesia/Blood Transfusion Reactions: No Reported Reaction Past Psychological History: Depression Smoking Status: Never smoker Past Alcohol Use History: None Reported Past Drug Use History: None Reported - Past Family History Father Family Medical History: Cancer Medications and Allergies Home Medications Medication Instructions Recorded Confirmed Type Gamunex 75 gram IV Q14D 03/07/14 11/15/18 History Sertraline [Zoloft] 100 mg PO BID 03/07/14 11/15/18 History clonazePAM [KlonoPIN] 1 mg PO BID 09/13/17 11/15/18 History traZODone HCL 200 mg PO HS 09/13/17 11/15/18 History Topiramate [Topamax] 100 mg PO BID 12/03/17 11/15/18 History Aspirin 325 mg PO DAILY 11/15/18 11/15/18 History Allergies Allergy/AdvReac Type Severity Reaction Status Date / Time No Known Allergies Allergy Verified 11/15/18 17:48 Physical Exam Vitals: Vital Signs Temp Pulse Pulse Resp BP BP BP 11/16/18 07:33 97.7 F 85 16 104/71 11/16/18 03:55 68 17 103/72 11/16/18 03:25 97.6 F 66 16 11/16/18 03:11 56 L 16 11/16/18 00:28 97.6 F 63 16 101/69 11/15/18 23:33 17 11/15/18 21:40 75 17 11/15/18 20:02 11/15/18 20:00 97.7 F 64 16 111/78 11/15/18 19:30 17 11/15/18 19:20 97.9 F 78 18 103/75 11/15/18 17:48 97.7 F 85 16 131/95 11/15/18 16:40 97.7 F 84 18 157/81 Pulse Ox 11/16/18 07:33 96 11/16/18 03:55 11/16/18 03:25 97 11/16/18 03:11 11/16/18 00:28 98 11/15/18 23:33 11/15/18 21:40 11/15/18 20:02 99 11/15/18 20:00 99 11/15/18 19:30 11/15/18 19:20 99 11/15/18 17:48 98 11/15/18 16:40 100 Intake and Output 11/15/18 11/16/18 11/16/18 22:59 06:59 14:59 Other: Voiding Method Toilet Toilet # Voids 1 1 Weight 81.647 kg Results 11/15/18 17:30 11/15/18 17:30 Cardiac Enzymes 11/15/18 11/15/18 11/15/18 Range/Units 17:30 17:30 23:20 AST 17 (14-36) U/L Troponin I <0.012 <0.012 (0.000-0.034) ng/mL 11/16/18 Range/Units 05:43 AST (14-36) U/L Troponin I <0.012 (0.000-0.034) ng/mL Coagulation 11/15/18 Range/Units 17:30 PT 10.2 (9.0-12.0) sec APTT 22.0 (22.0-30.0) sec Lipids 11/16/18 Range/Units 05:43 Triglycerides 278 H (<150) mg/dL Cholesterol 168 (<200) mg/dL HDL Cholesterol 31 L (40-60) mg/dL CBC 11/15/18 Range/Units 17:30 WBC 4.9 (3.8-10.6) k/uL RBC 4.71 (3.80-5.40) m/uL Hgb 14.5 (11.4-16.0) gm/dL Hct 44.1 (34.0-46.0) % Plt Count 230 (150-450) k/uL Comprehensive Metabolic Panel 11/15/18 Range/Units 17:30 Sodium 138 (137-145) mmol/L Potassium 4.2 (3.5-5.1) mmol/L Chloride 109 H (98-107) mmol/L Carbon Dioxide 22 (22-30) mmol/L BUN 16 (7-17) mg/dL Creatinine 1.05 H (0.52-1.04) mg/dL Glucose 86 (74-99) mg/dL Calcium 9.0 (8.4-10.2) mg/dL AST 17 (14-36) U/L ALT 22 (9-52) U/L Alkaline Phosphatase 48 (38-126) U/L Total Protein 8.6 H (6.3-8.2) g/dL Albumin 4.1 (3.5-5.0) g/dL Current Medications Generic Name Dose Route Start Last Admin Trade Name Freq PRN Reason Stop Dose Admin Aspirin 325 mg 11/16/18 09:00 Aspirin PO DAILY TACOS Clonazepam 1 mg 11/15/18 21:00 11/15/18 22:14 Klonopin PO 1 mg BID TACOS Administration Famotidine 20 mg 11/15/18 21:00 11/15/18 22:14 Pepcid IV 20 mg Q12HR TACOS Administration Heparin Sodium (Porcine) 5,000 unit 11/16/18 00:00 11/16/18 00:11 Heparin SQ 5,000 unit Q8HR TACOS Administration Morphine Sulfate 2 mg 11/15/18 19:00 11/15/18 23:38 Morphine Sulfate (Inj) IVP 2 mg Q4H PRN Administration Pain Nitroglycerin 0.4 mg 11/15/18 18:58 Nitrostat SUBLINGUAL Q5M PRN Chest Pain Ondansetron HCl 4 mg 11/15/18 19:01 Zofran IVP Q8H PRN Nausea Pantoprazole Sodium 40 mg 11/15/18 21:30 11/15/18 22:16 Protonix PO 40 mg AC-BID TACOS Administration Sertraline HCl 100 mg 11/15/18 21:00 11/15/18 22:21 Zoloft PO Not Given BID TACOS Topiramate 100 mg 11/15/18 21:00 11/15/18 22:16 Topamax PO 100 mg BID TACOS Administration Trazodone HCl 200 mg 11/15/18 21:00 11/15/18 22:15 Desyrel PO 200 mg HS TACOS Administration Intake and Output 11/15/18 11/16/18 11/16/18 22:59 06:59 14:59 Other: Voiding Method Toilet Toilet # Voids 1 1 Weight 81.647 kg 11/15/18 17:30 11/15/18 17:30
[2018-11-16] MEDS ORDERED: SODIUM CHLORIDE 0.9% 500 ML 250 ML IV ONE (11:29)
[2018-11-16] MEDS: PANTOPRAZOLE 40 MG TABLET PO SCH (11:34)
--- NOTE | 2018-11-16 12:03 | ECHOF ---
Referral Reason:cp MEASUREMENTS -------- HEIGHT: 162.6 cm WEIGHT: 81.6 kg BP: RVIDd: 2.7 cm (< 3.3) IVSd: 0.8 cm (0.6 - 1.1) LVIDd: 4.3 cm (3.9 - 5.3) LVPWd: 1.3 cm (0.6 - 1.1) IVSs: 1.3 cm LVIDs: 2.6 cm LVPWs: 1.4 cm LA Diam: 3.3 cm (2.7 - 3.8) Ao Diam: 2.7 cm (2.0 - 3.7) AV Cusp: 1.6 cm (1.5 - 2.6) LA Diam: 3.0 cm (2.7 - 3.8) MV EXCURSION: 16.703 mm (> 18.000) MV EF SLOPE: 101 mm/s (70 - 150) EPSS: 0.3 cm MV E Shane: 0.52 m/s MV DecT: 250 ms MV A Shane: 0.59 m/s MV E/A Ratio: 0.88 RAP: 5.00 mmHg RVSP: 26.25 mmHg FINDINGS -------- Sinus rhythm. This was a technically good study. LV size, wall thickness and systolic function are normal, with an EF greater than 55%. The left jessica tricular size is normal. The right ventricle is normal in size. The left atrial size is normal. The right atrial size is normal. The aortic valve is trileaflet, and appears structurally normal. No aortic stenosis or regurgitation. The mitral valve is normal. Mild mitral regurgitation is present. Mild tricuspid regurgitation present. There is no evidence of pulmonary hypertension. The right v entricular systolic pressure, as measured by Doppler, is 26.25mmHg. Trace/mild (physiologic) pulmonic regurgitation. The aortic root size is normal. There is no pericardial effusion. CONCLUSIONS -------- 1. Sinus rhythm. 2. LV size, wall thickness and systolic function are normal, with an EF greater than 55%. 3. The left ventricular size is normal. 4. The left atrial size is normal. 5. The aortic valve is trileaflet, and appears structurally normal. No aortic stenosis or regurgitati on. 6. Mild mitral regurgitation is present. 7. Mild tricuspid regurgitation present. 8. There is no evidence of pulmonary hypertension. 9. Trace/mild (physiologic) pulmonic regurgitation. 10. The aortic root size is normal. 11. There is no pericardial effusion. ELEVATOR TECHNICIAN: Keisha Ybarra RDCS
[2018-11-16 12:13] VITALS: RESP 18; TEMP 97.5
[2018-11-16] MEDS ORDERED: ATROPINE SULFATE 0.1 MG/ML 10ML SYRINGE ONE (12:48)
[2018-11-16] MEDS: FAMOTIDINE 20 MG/2 ML VIAL IV SCH (14:02)
[2018-11-16] MEDS: SERTRALINE 100 MG TAB PO SCH (14:07)
[2018-11-16] MEDS: TOPIRAMATE 100 MG TAB PO SCH (14:07)
[2018-11-16] MEDS: clonazePAM 1 MG TAB PO SCH (14:07)
--- NOTE | 2018-11-16 14:23 | ECHOS ---
STRESS ECHOCARDIOGRAM INDICATIONS: Chest pain/shortness of breath BASELINE HEART RATE: 73 BASELINE BLOOD PRESSURE: 110/75 MAXIMUM HEART RATE: 165 MAXIMUM BLOOD PRESSURE: 169/87 85% MPHR: 151 100% MPHR: 178 MAXIMUM STAGE REACHED: 4 TOTAL EXERCISE TIME: 12:14 CLINICAL INFORMATION: Baseline rhythm is sinus mechanism, rate 73, normal axis, intervals, minor nonspecific ST-T wave changes. Baseline blood pressure 110/75 mmHg. Patient received an infusion of dobutamine per protocol. Subsequent received 0.5 mg of intravenous atropine. Peak rate of 165 beats per minute which is equal to 91% maximum predicted heart rate. Peak blood pressure 169/87 mmHg. Electrocardiograph monitoring revealed no evidence of diagnostic ischemic ST deviation. Rare PVCs in recovery. There was a 0.[address]-segment depression of unclear significance. FINDING: Baseline echocardiogram revealed normal wall motion. At peak infusion there was normal wall thickening and motion with no evidence of stress-induced ischemia. CONCLUSION: 1. No evidence of ST-segment changes during dobutamine fusion with [address]-segment depression late in recovery of unclear significance. 2. Normal stress echocardiogram with no evidence of stress-induced ischemia. MMODL / IJN: [id number] /
[2018-11-16 14:33] VITALS: BP 85/61; PULSE 101
--- NOTE | 2018-11-16 15:34 | P.DS ---
Providers Date of admission: 11/15/18 19:02 Expected date of discharge: 11/16/18 Attending physician: Roxanna Huddleston MD Consults: 11/15/18 18:59 Consult Physician Urgent Consulting Provider: Jin Crockett Consult Reason/Comments: CP Do you want consulting provider notified?: Yes Primary care physician: Gladys Quijano [facility] Course: Discharge Diagnosis: Atypical chest pain GERD Myasthenia gravis Migraines Chronic back pain Hospital Course: Patient is a 43-year-old female with a history of myasthenia gravis and GERD who presented to the emergency department with complaints of left- sided chest pain. In the ER she underwent an extensive evaluation. On her initial vital signs she was slightly hypertensive with a blood pressure 157/81. Initial laboratory analysis was negative. Troponin was negative. EKG was unremarkable. Lipase was slightly elevated at 302. She was admitted for chest pain. She was monitored overnight on telemetry without any significant event. Her troponin remained negative. She was seen by cardiology in the morning of 11/16 and underwent an echocardiogram and dobutamine stress test. Echocardiogram was negative and dobutamine stress test showed no definitive evidence of ischemia but did show a [address] segment depression of significance. Her chest pain improved throughout hospitalization. Her blood pressure was slightly low on 11/16 after stress testing with a systolic blood pressure of 85. However she states her normal systolic blood pressure is 90s when she goes and gets her IVIG every 2 weeks. She was up and walking without symptoms. She is determined stable for discharge. Patient does report that she has been struggling significantly late with acid reflux over the last several weeks. Her Zantac 300 milligrams twice daily has not been effective. We discussed a trial of Protonix and she was given a prescription. She will follow up with Dr. Quijano in the next 1-2 weeks. She'll also follow-up with cardiology in the next 1-2 weeks. I did discuss with her the importance of returning to the emergency department should her symptoms recur. Patient seen and examined at bedside. Chest pain improved, no shortness of breath, no nausea, no vomiting. Vital signs reviewed and stable. General: non toxic, no distress, appears at stated age Derm: warm, dry Head: atraumatic, normocephalic, symmetric Eyes: EOMI, no lid lag, anicteric sclera Mouth: no lip lesion, mucus membranes moist Cardiovascular: S1S2 reg, no murmur, positive posterior tibial pulse bilateral, Lungs: CTA bilateral, no rhonchi, no rales , no accessory muscle use Abdominal: soft, nontender to palpation, no guarding, no appreciable organomegaly Ext: no gross muscle atrophy, no edema, no contractures Neuro: CN II-XI grossly intact, no focal neuro deficits Psych: Alert, oriented, appropriate affect A total of 20 minutes of time were spent preparing this complex discharge summary . Pertinent Studies: echocardiogram-ejection fraction 55%, no pulmonary hypertension, no significant valvular disease Dobutamine stress echo-no evidence of ST segment changes during dobutamine infusion with [address] segment depression lately and recovery of unclear significance. Normal stress echocardiogram with no evidence of stress-induced ischemia. Patient Condition at Discharge: Fair Plan - Discharge Summary Discharge Rx Participant: Yes New Discharge Prescriptions: New Pantoprazole [Protonix] 40 mg PO AC-BID #60 tablet. Continue Sertraline [Zoloft] 100 mg PO BID Gamunex 75 gram IV Q14D traZODone HCL 200 mg PO HS clonazePAM [KlonoPIN] 1 mg PO BID Topiramate [Topamax] 100 mg PO BID Aspirin 325 mg PO DAILY Discharge Medication List Gamunex 75 gram IV Q14D 03/07/14 [History] Sertraline [Zoloft] 100 mg PO BID 03/07/14 [History] clonazePAM [KlonoPIN] 1 mg PO BID 09/13/17 [History] traZODone HCL 200 mg PO HS 09/13/17 [History] Topiramate [Topamax] 100 mg PO BID 12/03/17 [History] Aspirin 325 mg PO DAILY 11/15/18 [History] Pantoprazole [Protonix] 40 mg PO AC-BID #60 tablet. 11/16/18 [Rx] Follow up Appointment(s)/Referral(s): Petrona Combs MD [STAFF PHYSICIAN] - 2 Weeks Gladys Quijano MD [Primary Care Provider] - 1-2 days Patient Instructions/Handouts: Chest Pain (ED) Activity/Diet/Wound Care/Special Instructions: regular diet activity as tolerated Discharge Disposition: HOME SELF-CARE
== END 2018-11-16 15:02 | disposition home or self-care (01) ==
LOC: EC 16:36 → 1SOBS 19:02
PROVIDERS: ADMIT Internal Medicine; ATTEND Internal Medicine
DX: R07.89 Other chest pain (principal); R11.2 Nausea with vomiting, unspecified; R42 Dizziness and giddiness; R06.02 Shortness of breath; R74.8 Abnormal levels of other serum enzymes; K21.9 Gastro-esophageal reflux disease without esophagitis; F32.9 Major depressive disorder, single episode, unspecified; G70.00 Myasthenia gravis without (acute) exacerbation; G89.29 Other chronic pain; M54.9 Dorsalgia, unspecified; Z79.82 Long term (current) use of aspirin; Z79.899 Other long term (current) drug therapy; G43.909 Migraine, unspecified, not intractable, without status migrainosus; Z90.710 Acquired absence of both cervix and uterus; Z90.89 Acquired absence of other organs; Z98.51 Tubal ligation status; Z80.9 Family history of malignant neoplasm, unspecified
CPT/HCPCS: 93005 ×3; 96372; 96376 ×2; 96374; 96375; 99285; 36415; 94760; 93306; 93351; 85379; 80061; 80053; 85652; 82150; 83690 ×2; 83735; 84484 ×2; 85025; 85610; 85730; 86140; 71046; G0378 ×2; J1250; J1644; J0461; J2270

== ENCOUNTER 2018-11-20 19:26 | Emergency (ER) | payer MEDICARE ==
[2018-11-20] MEDS ORDERED: HYDROcodone/APAP 5-325MG 1 EACH TAB PO STA (21:17)
--- NOTE | 2018-11-20 23:20 | ED ---
General Adult HPI - General Chief complaint: Recheck/Abnormal Lab/Rx Stated complaint: Arm swelling Time Seen by Provider: 11/20/18 20:31 Source: patient Mode of arrival: ambulatory Limitations: physical limitation - History of Present Illness Initial comments: 43-year-old female patient presents to the emergency department today for evaluation of left arm pain, redness, and swelling. Patient states she was admitted to the hospital on Thursday for a chest pain workup and had an IV to the area. Patient states Thursday morning she started to have increasing pain and redness to the area. Patient states the swollen area has become larger. States she is able to feel a hard lump in one of her veins. She denies any numbness or tingling to the arm. Denies any fevers or chills with this. Denies any drainage from the area. Patient denies any recent rash, shortness breath, chest pain, abdominal pain, nausea, vomiting, diarrhea, constipation, back pain, dizziness, weakness, hematuria, dysuria, urinary urgency, urinary frequency, headache, visual changes, or any other complaints. - Related Data Home Medications Medication Instructions Recorded Confirmed Gamunex 75 gram IV Q14D 03/07/14 11/20/18 Sertraline [Zoloft] 100 mg PO BID 03/07/14 11/20/18 clonazePAM [KlonoPIN] 1 mg PO BID 09/13/17 11/20/18 traZODone HCL 200 mg PO HS 09/13/17 11/20/18 Topiramate [Topamax] 100 mg PO BID 12/03/17 11/20/18 Aspirin 325 mg PO DAILY 11/15/18 11/20/18 Previous Rx's Medication Instructions Recorded Pantoprazole [Protonix] 40 mg PO AC-BID #60 tablet. 11/16/18 Ibuprofen [Motrin] 600 mg PO Q8HR PRN #30 tab 11/21/18 Allergies Allergy/AdvReac Type Severity Reaction Status Date / Time No Known Allergies Allergy Verified 11/20/18 19:32 Review of Systems ROS Statement: Those systems with pertinent positive or pertinent negative responses have been documented in the HPI. ROS Other: All systems not noted in ROS Statement are negative. Past Medical History Past Medical History: GERD/Reflux, Musculoskeletal Disorder Additional Past Medical History / Comment(s): 3 herniated discs, myasthenia gravis, hx migraines, History of Any Multi-Drug Resistant Organisms: None Reported Past Surgical History: Hernia Repair, Hysterectomy, Orthopedic Surgery, Ton sillectomy, Tubal Ligation Additional Past Surgical History / Comment(s): thymectomy, left knee arthroscopy, 3 port a cath/ 2 removed-currently has one Past Anesthesia/Blood Transfusion Reactions: No Reported Reaction Past Psychological History: Depression Smoking Status: Never smoker Past Alcohol Use History: None Reported Past Drug Use History: None Reported - Past Family History Father Family Medical History: Cancer General Exam Limitations: physical limitation General appearance: alert, in no apparent distress, other (Physical well- developed, well-nourished adult female patient in no acute distress. Vital signs upon presentation are temperature 97.9F, pulse 92, respirations 18, blood pressure 138/85, pulse ox 97% on room air.) Eye exam: Present: normal appearance, PERRL, EOMI. Absent: scleral icterus, conjunctival injection, periorbital swelling Respiratory exam: Present: normal lung sounds bilaterally. Absent: respiratory distress, wheezes, rales, rhonchi, stridor Cardiovascular Exam: Present: regular rate, normal rhythm, normal heart sounds. Absent: systolic murmur, diastolic murmur, rubs, gallop, clicks GI/Abdominal exam: Present: soft, normal bowel sounds. Absent: distended, tenderness, guarding, rebound, rigid Extremities exam: Present: full ROM, tenderness (Tenderness over the left medial forearm), normal capillary refill, other (There is a and area of swelling, jovon thema or tenderness over the left medial forearm extending up to the antecubital region. Skin is otherwise pink, warm, and dry. Cap refills less than 3 seconds. Radial pulses 2+ and equal bilaterally.). Absent: normal inspection, pedal edema, joint swelling, calf tenderness Neurological exam: Present: alert, oriented X3, CN II-XII intact Psychiatric exam: Present: normal affect, normal mood Skin exam: Present: warm, dry, intact, normal color. Absent: rash Course Vital Signs 11/20/18 11/20/18 11/21/18 19:27 23:22 00:28 Temperature 97.9 F 98.0 F 98.1 F Pulse Rate 92 72 71 Respiratory 18 16 16 Rate Blood Pressure 138/85 121/84 139/92 O2 Sat by Pulse 97 98 98 Oximetry Medical Decision Making - Medical Decision Making 43-year-old female patient presented to the emergency department today for evaluation of redness, swelling, and pain to her medial forearm. Patient did have an IV to the site a few days ago for an inpatient admission. Patient states the symptoms started on Thursday. She denies any fevers or chills with this. Denies any numbness or tingling to the arm. Ultrasound was obtained and did reveal a superficial thrombophlebitis to the area of redness and pain. Incidentally there was a thrombus noted to the left internal jugular vein which did show large collateral vessels indicating that this is a chronic condition. Patient does take a baby aspirin daily, she is urged to continue this. She is instructed to start taking ibuprofen 3 times daily. She is instructed to apply warm compresses to the forearm. 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 Return parameters were discussed in detail. She verbalizes understanding and agrees this plan. - Radiology Data Radiology results: report reviewed Venous Doppler duplex of the left upper extremities was obtained. Report was reviewed in its entirety. Impression by Dr. De La oTrre shows thrombus in the left internal jugular vein with large collateral veins in the left lateral neck this may be chronic process. Superficial vein thrombosis in the cephalic vein in area of redness and pain. Disposition Clinical Impression: Superficial thrombophlebitis, Thrombosis of left internal jugular vein Disposition: HOME SELF-CARE Condition: Good Instructions (If sedation given, give patient instructions): Superficial Thrombophlebitis (ED), Deep Vein Thrombosis (ED) Additional Instructions: Apply warm compresses to the left forearm. Take ibuprofen as directed. Follow- up with your primary care physician for recheck as soon as possible. Inform them of your chronic blood clot to the left internal jugular vein. Return to the emergency department immediately for any new, worsening, or concerning symptoms. Prescriptions: Ibuprofen [Motrin] 600 mg PO Q8HR PRN #30 tab PRN Reason: Pain Is patient prescribed a controlled substance at d/c from ED?: No Referrals: Gladys Quijano MD [Primary Care Provider] - 1-2 days Time of Disposition: 00:12
[2018-11-20 23:26] VITALS: RESP 16
--- NOTE | 2018-11-20 23:27 | US ---
EXAM: US Duplex Left Upper Extremity Veins CLINICAL HISTORY: ITS.REASON US Reason: Pain TECHNIQUE: Real-time duplex ultrasound scan of the left upper extremity veins integrating B-mode two-dimensional vascular structure, Doppler spectral analysis, color flow Doppler imaging and compression. COMPARISON: No relevant prior studies available. FINDINGS: Positive thrombus in the left internal jugular vein. Large collateral veins are present in the left lateral neck. Superficial vein thrombosis is noted in the left cephalic vein near the area of skin redness and pain from left brachial fossa at the distal forearm. Remaining vessels are patent (subclavian, axillary, brachial, radial, and basilic veins). IMPRESSION: Thrombus in the left internal jugular vein with large collateral veins in the left lateral neck at this may be a chronic process. Superficial vein thrombosis in the cephalic vein in the area of redness and pain.
[2018-11-21 00:29] VITALS: BP 139/92; PULSE 71; TEMP 98.1
== END 2018-11-21 00:30 | disposition home or self-care (01) ==
LOC: EC 19:26
DX: I82.C12 Acute embolism and thrombosis of left internal jugular vein (principal); I80.9 Phlebitis and thrombophlebitis of unspecified site; F32.9 Major depressive disorder, single episode, unspecified; Z79.899 Other long term (current) drug therapy
CPT/HCPCS: 99283

== ENCOUNTER → 2019-02-11 | Outpatient (CLI) | payer MEDICARE ==
--- NOTE | 2019-02-15 10:13 | MM ---
Reason for exam: screening (asymptomatic). Last mammogram was performed 1 year and 1 month ago. History: Family history of breast cancer in paternal aunt at age 70, breast cancer in paternal grandmother at age 70, breast cancer in maternal aunt at age 70, and breast cancer in maternal grandmother at age 70. Took hormonal contraceptives for 17 years beginning at age 18. Physical Findings: A clinical breast exam by your physician is recommended on an annual basis and results should be correlated with mammographic findings. MG 3D Screening Mammo W/Cad Bilateral CC and MLO view(s) were taken. Prior study comparison: January 04, 2018, bilateral MG 3d screening mammo w/cad. April 23, 2016, bilateral MG 3d screening mammo w/cad. The breast tissue is heterogeneously dense. This may lower the sensitivity of mammography. There is a stable right upper outer quadrant mass back to 2016, possibly an intramammary lymph node. No suspicious abnormality. No significant changes when compared with prior studies. ASSESSMENT: Benign, BI-RAD 2 RECOMMENDATION: Routine screening mammogram of both breasts in 1 year.
== END | disposition home or self-care (01) ==
LOC: RADMAMWWP 13:42
PROVIDERS: ATTEND Family Medicine
DX: Z12.31 Encounter for screening mammogram for malignant neoplasm of breast (principal)
CPT/HCPCS: 77063; 77067

== ENCOUNTER → 2019-05-09 | Outpatient (CLI) | payer MEDICARE ==
[~2019-05-09] MED LIST changes: -DEXAMETHASONE SOD PHOSPHATE 10 MG/ML 1 ML VIAL IV ONE; -HEPARIN SODIUM,PORCINE 5,000 UNIT/ML 1 ML VIAL SQ ONE; -LACTATED RINGERS 1,000 ML IV SCH; -MIDAZOLAM 2 MG/2 ML VIAL IV PRN; -ONDANSETRON 4 MG/2 ML VIAL IVP ONE; -SCOPOLAMINE 1.5MG/72HR PATCH TRANSDERM ONE; +SODIUM CHLORIDE 0.9% 500 ML 500 ML in EMPTY BAG 1 BAG IV PRN; -ceFAZolin IN SWFI 2 GM/20 ML SYRINGE IVP ONE
[2019-05-09 11:28] VITALS: BP 120/86; PULSE 83; RESP 15; TEMP 98.1
== END | disposition home or self-care (01) ==
LOC: PROCWHC3 11:08
PROVIDERS: ATTEND Family Medicine
DX: G70.00 Myasthenia gravis without (acute) exacerbation (principal)
CPT/HCPCS: 96523; J1642

== ENCOUNTER → 2019-05-20 | Outpatient (CLI) | payer MEDICARE ==
[~2019-05-20] MED LIST changes: +ACETAMINOPHEN TAB 325 MG TAB PO NR; +diphenhydrAMINE 25 MG CAP PO NR; +methylPREDNISolone SOD SUCCI 125 MG/2 ML VIAL IV NR; +riTUXimab 1,000 MG in SODIUM CHLORIDE 0.9% 500 ML 500 ML IV NR
[2019-05-20 09:22] VITALS: RESP 16; TEMP 97.9
[2019-05-20 09:56] LABS: Calcium 8.9 mg/dL (8.4-10.2); Potassium 3.8 mmol/L (3.5-5.1)
[2019-05-20 11:26] VITALS: BP 122/84; PULSE 68
== END | disposition home or self-care (01) ==
LOC: PROCWHC3 08:31
DX: Z51.11 Encounter for antineoplastic chemotherapy (principal); G70.00 Myasthenia gravis without (acute) exacerbation
CPT/HCPCS: 80048; 82784; 96375; 96413; 96415; J2930; J9312; J1642

== ENCOUNTER → 2019-11-17 | Outpatient (CLI) | payer MEDICARE, OTHER ==
--- NOTE | 2019-11-17 14:19 | MR ---
EXAMINATION TYPE: MR shoulder RT wo con DATE OF EXAM: 11/17/2019 COMPARISON: Shoulder x-rays dated 11/08/2019 HISTORY: Rt shoulder pain TECHNIQUE: Multiplanar, multisequence imaging of the right shoulder is performed without contrast. FINDINGS: Rotator Cuff: There is mild bursal surface fraying of the supraspinatus at the myotendinous junction and overlying the tendinous fibers. No discrete tear is seen. Mild T2 hyperintensity of the insertion al fibers represents of mild tendinopathy. Mild tendinopathy is also seen of the infraspinatus withou t discrete tear. Similar mild tendinopathy of the subscapularis myotendinous junction and insertional fibers. No tear. Teres minor is unremarkable. Acromioclavicular Joint: Mild acromioclavicular arthropathy with few marginal osteophytes and capsula r hypertrophy. Glenohumeral Joint: Glenohumeral joint is aligned Labrum: The labrum appears grossly intact given limitation of non-arthrogram study. There is labral d egeneration of the posterior inferior labrum with internal high signal. Biceps Tendon: The long head of biceps is in normal location within bicipital groove. Bone marrow signal: No focal abnormal marrow signal is appreciated. Other: There is increased signal of the cortical clavicular ligament and coracoacromial ligament with partial-thickness tear. This is seen on coronal T2 fat sat image 7 through 9. IMPRESSION: 1. Partial-thickness tear of the coracoclavicular ligament and coracoacromial ligament. 2. Mild tendinopathy of the supraspinatus and infraspinatus with bursal surface fraying of the supras pinatus fibers. No discrete rotator cuff tear. 3. Mild subscapularis tendinopathy. 4. Labral degeneration of the posterior inferior glenoid labrum. 5. Mild acromioclavicular arthropathy.
== END | disposition home or self-care (01) ==
LOC: RADMRIMAIN 12:42
PROVIDERS: ATTEND Orthopaedic Surgery
DX: S43.81XA Sprain of other specified parts of right shoulder girdle, initial encounter (principal); M12.811 Other specific arthropathies, not elsewhere classified, right shoulder; M75.21 Bicipital tendinitis, right shoulder; M25.811 Other specified joint disorders, right shoulder

== ENCOUNTER 2020-01-20 11:48 | Day surgery (SDC) | payer MEDICARE, OTHER ==
[2020-01-19 14:02] VITALS: BMI 29.2
--- NOTE | 2020-01-20 09:15 | HP ---
HISTORY AND PHYSICAL DATE OF SERVICE: 01/20/2020. Ann Menchaca is a 44-year-old patient seen with progressive right shoulder pain. We discussed options. She elected to proceed with arthroscopy. Consent was obtained. PAST MEDICAL HISTORY: Depression. PAST SURGICAL HISTORY: Cholecystectomy, hysterectomy, knee arthroscopy. MEDICATIONS: Abilify, Prozac. ALLERGIES: None. SOCIAL HISTORY: She denies current tobacco use. PHYSICAL EVALUATION OF THE RIGHT SHOULDER: Flexion is 120, abduction is 110, external rotation is 20 with pain and weakness. There is tenderness along the anterolateral acromion rotator cuff insertion site. Impingement is positive at 90 degrees. Drop-arm sign is positive. Distal neurovascular exam is intact. RADIOGRAPHS: Right shoulder type 2 anterior acromion. MRI right shoulder partial rotator cuff tendon tear, labral tear, and acromioclavicular joint osteoarthritis. IMPRESSION: 1. Right shoulder impingement with partial rotator cuff tear. 2. Right shoulder labral tear. 3. Depression. PLAN: Right shoulder arthroscopy with subacromial decompression, arthroscopic rotator cuff repair, arthroscopic Nma procedure and debridement. MMODL / IJN: [id number] /
[2020-01-20] MEDS ORDERED: LACTATED RINGERS 1,000 ML IV ONE ×2 (12:13)
[2020-01-20] MEDS ORDERED: DEXAMETHASONE SOD PHOS (MDV) 100 MG/10 ML VIAL IVP ONE (12:44)
[2020-01-20] MEDS ORDERED: ONDANSETRON 4 MG/2 ML VIAL IVP ONE (12:44)
[2020-01-20 13:03] LABS: Basophils % (A) 1 %; Eosinophils # (A) 0.2 k/uL (0-0.7); Eosinophils % (A) 5 %; HCT 43.8 % (34.0-46.0); HGB 15.4 gm/dL (11.4-16.0); Lymphocytes # (A) 1.1 k/uL (1.0-4.8); Lymphocytes % (A) 28 %; MCH 30.4 pg (25.0-35.0); MCHC 35.1 g/dL (31.0-37.0); MCV 86.5 fL (80.0-100.0); Mean Platelet Volume 7.4; Monocytes # (A) 0.5 k/uL (0-1.0); Monocytes % (A) 13 %; Neutrophils % (A) 51 %; Platelet Count 227 k/uL (150-450); RBC 5.06 m/uL (3.80-5.40); WBC 3.9 k/uL (3.8-10.6)
[2020-01-20 13:12] LABS: Calcium 8.7 mg/dL (8.4-10.2); Potassium 4.2 mmol/L (3.5-5.1)
[2020-01-20] MEDS ORDERED: fentaNYL (PF) 50 MCG/ML 2 ML AMP IVP ONE (14:03)
[2020-01-20] MEDS ORDERED: MIDAZOLAM 2 MG/2 ML VIAL IVP ONE (14:03)
[2020-01-20] MEDS ORDERED: PROPOFOL 10 MG/ML 20 ML VIAL IV ONE (15:04)
[2020-01-20] MEDS ORDERED: fentaNYL (PF) 50 MCG/ML 2 ML AMP ONE (15:04)
[2020-01-20] MEDS ORDERED: MIDAZOLAM 2 MG/2 ML VIAL ONE (15:04)
[2020-01-20] MEDS ORDERED: LIDOCAINE 2%-EPI 1:100,000 20 ML VIAL ONE (15:04)
[2020-01-20] MEDS ORDERED: LIDOCAINE 1% INJ 10MG/ML (20 ML MDV) ONE (15:04)
[2020-01-20] MEDS ORDERED: ROPIVACAINE 5 MG/ML 30 ML VIAL ONE (15:04)
[2020-01-20 16:57] VITALS: TEMP 96.6
[2020-01-20 17:05] VITALS: RESP 18
--- NOTE | 2020-01-20 17:14 | P.OP ---
Date of Procedure: 01/20/20 Preoperative Diagnosis: Right shoulder impingement Postoperative Diagnosis: 1. Right shoulder rotator cuff tear 2. Right shoulder impingement 3. Right shoulder partial long head biceps tendon tear Procedure(s) Performed: 1. Right shoulder arthroscopic rotator cuff repair 2. Right shoulder arthroscopic subacromial decompression 3. Right shoulder arthroscopic biceps tenotomy Implants: 14.75 Arthrex swivel lock anchor Anesthesia: GETA, regional (Interscalene block) Surgeon: Issac Dailey Guest Services Director #1: Goldy Cespedes Estimated Blood Loss (ml): 7 Pathology: none sent Condition: stable Disposition: PACU Indications for Procedure: 44-year-old patient seen with progressive right shoulder pain. After treatment options were discussed, she elected to proceed with arthroscopy. Operative Findings: See description of procedure Description of Procedure: Patient underwent an interscalene block by department of anesthesia. The patient was then taken to the operative suite. The patient underwent a general anesthetic by the department of anesthesia. The patient was placed into a lateral position and secured. There was appropriate padding of the bony prom inence. Right shoulder was then prepped and draped in normal sterile orthopedic fashion. We placed the extremity in 10 pounds of longitudinal traction. A posterior incision was now made for a posterior working portal site. The trocar and cannula were inserted into the glenohumeral joint. Arthroscopy was initiated. Spinal needle was now inserted anteriorly, to ascertain the anterior working portal site. An incision was now made in that area, a trocar was inserted followed by a probe. There was partial tearing and hyperemia long head biceps tendon. The labrum was intact. There was no significant chondromalacia/arthritis. I performed an arthroscopic biceps tenotomy. I again probed the residual labrum and it was found to be stable. Instruments were now removed from the glenohumeral joint. Utilizing the posterior working portal site, the trocar and cannula were inserted into the subacromial space. Arthroscopy initiated. I made an incision 2 fingerbreadths lateral to the acromion. I introduced my trocar followed by my ArthroCare ablator. I now began ablating thick subacromial bursal tissue, which exposed the undersurface of the anterior acromion. There was diminished subacromial space. There was a very prominent anterior acromion. A motorized bur was introduced and a subacromial decompression was performed. I also excised some osteophytes off the inferior aspect of the distal clavicle. The AC joint was visualized and noted to be mildly arthritic. I turned my attention to the rotator cuff tendon. There was a 1 cm tear along the distal anterior supraspinatus tear. There was also a intrasubstance component to this. I debrided the margins getting down to stable tendon tissue. The tear along the footprint was actually 1.5 cm. I now passed 2 sutures and repaired the intrasubstance tear with 2 [id number] single interrupted sutures with the assistance of Prakash COBIAN. The suture limbs were clipped. I abraded the footprint with a motorized bur. I now passed 2 everted mattress suture through good bites of rotator cuff tendon. I now punched a hole in the footprint area for insertion of an anchor. All 4 limbs of suture were passed through the eyelet of a 4.75 Arthrex swivel lock anchor. The eyelet was introduced into the pre-punch hole. I held in position while Prakash COBIAN tension the sutures in the carmel the anchor. All residual suture limbs were now clipped. We had good compression of the tendon along the entire footprint. I injected 1 mL Renyte intra-articular. Instruments now removed from the portal sites. All portal sites were approximated with nylon suture. Sterile dressings were applied followed by a shoulder immobilizer. Goldy COBIAN assisted in this complex case. The patient was awakened, transferred to a bed, and taken to recovery in stable condition.
[2020-01-20 17:55] VITALS: BP 118/76; PULSE 71
--- NOTE | 2020-01-22 08:58 | P.ANPRN ---
Procedure Note - Anesthesia - Nerve Block Performed Right Interscalene Single Time Out Performed: Yes (1402) Date of Procedure: 01/20/20 Procedure Start Time: 14:03 Procedure Stop Time: 14:07 Location of Patient: PreOp Indication: Acute Post-Operative Pain, Requested by Surgeon Specifically requested for management of pain by DrDevora: Issac Dailey Sedation Type: Sedate with meaningful contact maintained Preparation: Sterile Prep Position: Supine Catheter: None Needle Types: Pajunk Needle Gauge: 21 Ultrasound used to visualize needle placement: Yes Ultrasound used to observe medication spread: Yes Injectate: Other (see comment) (Lido 2% with epi 15cc and Ropi 0.5% 15cc) Blood Aspirated: No Pain Paresthesia on Injection Noted: No Resistance on Injection: Normal Image Stored and Saved: Yes Events: Uneventful and Well Tolerated
== END 2020-01-20 18:34 | disposition home or self-care (01) ==
LOC: OR 11:48
PROVIDERS: ATTEND Orthopaedic Surgery
DX: M75.41 Impingement syndrome of right shoulder (principal); M75.101 Unspecified rotator cuff tear or rupture of right shoulder, not specified as traumatic; S46.111A Strain of muscle, fascia and tendon of long head of biceps, right arm, initial encounter; M19.011 Primary osteoarthritis, right shoulder; M25.711 Osteophyte, right shoulder; F32.9 Major depressive disorder, single episode, unspecified; G43.909 Migraine, unspecified, not intractable, without status migrainosus; F41.9 Anxiety disorder, unspecified; K21.9 Gastro-esophageal reflux disease without esophagitis; G70.00 Myasthenia gravis without (acute) exacerbation; Z11.59 Encounter for screening for other viral diseases; Z90.49 Acquired absence of other specified parts of digestive tract; Z90.710 Acquired absence of both cervix and uterus; Z98.890 Other specified postprocedural states; Z79.899 Other long term (current) drug therapy; Z79.1 Long term (current) use of non-steroidal anti-inflammatories (NSAID); Z86.73 Personal history of transient ischemic attack (TIA), and cerebral infarction without residual deficits; Z86.19 Personal history of other infectious and parasitic diseases; X58.XXXA Exposure to other specified factors, initial encounter
CPT/HCPCS: 29824; 29826; 29827; 64415; 76942; 80048; 85025; 87635; C1713; Q4212; J2250; J0690; J2405; J2001; J3010; J1100; J2795; J2704

== ENCOUNTER → 2020-02-16 | Outpatient (CLI) | payer MEDICARE | END | disposition home or self-care (01) | LOC: LABWHC1 13:29 | PROVIDERS: ATTEND Family Medicine | DX: Z11.59 Encounter for screening for other viral diseases (principal) ==

== ENCOUNTER → 2020-03-20 | Outpatient (CLI) | payer MEDICARE ==
--- NOTE | 2020-03-20 08:30 | MR ---
EXAMINATION TYPE: MR shoulder RT wo con DATE OF EXAM: 03/20/2020 8:05 AM COMPARISON: 11/17/2019 HISTORY: Surgery on Shoulder 01/18/20, Fell with both arms extended 2 weeks ago, pain now worse than be fore surgery. TECHNIQUE: Multiplanar multispin echo imaging of the right shoulder was performed. FINDINGS: Rotator cuff : There is been interval surgical intervention with acromioplasty noted. There is a burs al surface partial tear noted at the critical zone of the supraspinatus tendon with superimposed swiss type screw machine operator alannah tendinopathy. No evidence for full-thickness tear. Tendinosis of the infraspinatus is noted as we ll in addition to the subscapularis tendons. Bursa: Small joint effusion noted. Musculature: There is no muscular tear, contusion, or atrophy. Acromioclavicular joint : Postoperative changes of acromioplasty noted in the interval. Osseous structures : There are no fractures or regions of abnormal bone marrow signal intensity. Scre w placement humeral head. Long biceps tendon : Biceps tendon demonstrates thinning. The biceps tendon is normally situated with in the bicipital groove. No evidence for complete tear. Glenohumeral Joint fluid : Small joint effusion identified. Cartilage and Bone : No focal hyaline cartilage defects are noted. No Hill-Sachs, reverse Hill-Sachs, or bony Bankart lesions are seen. Labrum : There are no SLAP or soft tissue Bankart lesions. No paralabral cysts are seen. OTHER FINDINGS : none IMPRESSION: 1. Interval postoperative change of acromioplasty and screw placement humeral head. There is bursal s urface partial tear of the supraspinatus tendon superimposed chronic tendinopathy. 2. Small joint effusion noted. 3. Thinning of the biceps tendon.
== END | disposition home or self-care (01) ==
LOC: RADMRIMAIN 07:22
PROVIDERS: ATTEND Orthopaedic Surgery
DX: M75.111 Incomplete rotator cuff tear or rupture of right shoulder, not specified as traumatic (principal); M25.411 Effusion, right shoulder

== ENCOUNTER → 2021-02-05 | Outpatient (CLI) | payer MEDICARE ==
--- NOTE | 2021-02-07 09:36 | MM ---
Reason for exam: screening (asymptomatic). Last mammogram was performed 2 years ago. History: Family history of breast cancer in paternal aunt at age 70, breast cancer in paternal grandmother at age 70, breast cancer in maternal aunt at age 70, and breast cancer in maternal grandmother at age 70. Took hormonal contraceptives for 17 years beginning at age 18. Physical Findings: A clinical breast exam by your physician is recommended on an annual basis and results should be correlated with mammographic findings. MG 3D Screening Mammo W/Cad Bilateral CC and MLO view(s) were taken. Prior study comparison: February 11, 2019, bilateral MG 3d screening mammo w/cad. January 04, 2018, bilateral MG 3d screening mammo w/cad. The breast tissue is heterogeneously dense. This may lower the sensitivity of mammography. No significant changes when compared with prior studies. ASSESSMENT: Negative, BI-RAD 1 RECOMMENDATION: Routine screening mammogram of both breasts in 1 year.
== END | disposition home or self-care (01) ==
LOC: RADMAMWWP 09:52
PROVIDERS: ATTEND Family Medicine
DX: Z12.31 Encounter for screening mammogram for malignant neoplasm of breast (principal); Z80.3 Family history of malignant neoplasm of breast
CPT/HCPCS: 77063; 77067

== ENCOUNTER → 2021-06-03 | Outpatient (CLI) | payer MEDICARE, OTHER ==
[~2021-06-03] MED LIST changes: -ACETAMINOPHEN TAB 325 MG TAB PO NR; +ALTEPLASE 2 MG VIAL (CATHFLO) MISCELLANE PRN; -diphenhydrAMINE 25 MG CAP PO NR; -methylPREDNISolone SOD SUCCI 125 MG/2 ML VIAL IV NR; -riTUXimab 1,000 MG in SODIUM CHLORIDE 0.9% 500 ML 500 ML IV NR
[2021-06-03 08:34] VITALS: BP 120/86; PULSE 79; RESP 16; TEMP 98.1
== END ==
LOC: PROCWHC3 08:08
PROVIDERS: ATTEND Psychiatry & Neurology Neurology
DX: Z45.2 Encounter for adjustment and management of vascular access device (principal)
CPT/HCPCS: 36593; J1642; J2997

== ENCOUNTER → 2022-02-06 | Outpatient (CLI) | payer MEDICARE, OTHER ==
--- NOTE | 2022-02-07 15:45 | MM ---
Reason for Exam: Screening (asymptomatic). Last screening mammogram was performed 12 month(s) ago. Patient History: Menarche at age 17. First Full-Term at age 30. Hormonal Contraceptives for 17 years from age 18 until age 35. Paternal grandmother had breast cancer, age 70. Maternal grandmother had breast cancer, age 70. Paternal aunt had breast cancer, age 70. Last menstrual period: 09/14/2013 Risk Values: Trang 5 year model risk: 0.8%. NCI Lifetime model risk: 9.7%. Film Views: Bilateral CC views were taken. Bilateral MLO views were taken. Prior Study Comparison: 01/04/2018 Bilateral Screening Mammogram, [facility]. 02/11/2019 Bilateral Screening Mammogram, [facility]. 02/05/2021 Bilateral Screening Mammogram, [facility]. Tissue Density: The breast tissue is heterogeneously dense. This may lower the sensitivity of mammography. Findings: Analyzed By CAD. Skin lesion in the right breast redemonstrated. There is no suspicious group of microcalcifications or new suspicious mass in either breast. Overall Assessment: Negative, BI-RAD 1 Management: Screening Mammogram of both breasts in 1 year. A clinical breast exam by your physician is recommended on an annual basis and results should be correlated with mammographic findings. Electronically signed and approved by: Ronald Blanchard M.D.
== END | disposition home or self-care (01) ==
LOC: RADMAMWWP 16:50
PROVIDERS: ATTEND Family Medicine
DX: Z12.31 Encounter for screening mammogram for malignant neoplasm of breast (principal); Z80.3 Family history of malignant neoplasm of breast
CPT/HCPCS: 77063; 77067

== ENCOUNTER → 2022-03-18 | Outpatient (CLI) | payer MEDICARE ==
--- NOTE | 2022-03-18 20:41 | US ---
EXAMINATION TYPE: US mass soft tissue chest/back DATE OF EXAM: 03/18/2022 COMPARISON: NONE CLINICAL HISTORY: R22.2 Chest Mass. Right upper anterior chest palpable, soft. Patient has history o f ports in the area. Area of concern scanned. Echogenic superficial area seen, nonvascular = 3.1 x 2.6 x 1.3 cm. Compression pictures taken. Contralateral images taken. Oval well-circumscribed hyperechoic avascular lesion in the subcutaneous tissue at site of palpable a bnormality favors benign etiology such as lipoma. If lesion becomes painful or thought to enlarge rep eat imaging would be warranted. IMPRESSION: As above.
== END | disposition home or self-care (01) ==
LOC: RADUSWWP 15:38
PROVIDERS: ATTEND Family Medicine
DX: R22.2 Localized swelling, mass and lump, trunk (principal)

== ENCOUNTER 2022-04-03 12:08 | Day surgery (SDC) | payer MEDICARE ==
[2022-04-02 11:21] VITALS: BMI 39.4
[~2022-04-03 12:08] MED LIST changes: -ALTEPLASE 2 MG VIAL (CATHFLO) MISCELLANE PRN; +SODIUM CHLORIDE 0.9% 1,000 ML in EMPTY BAG 1 BAG IV ONE; -SODIUM CHLORIDE 0.9% 500 ML 500 ML in EMPTY BAG 1 BAG IV PRN
[2022-04-03 12:57] VITALS: PULSE 84; RESP 18; TEMP 97.2
[2022-04-03 13:00] LABS: Basophils # (A) 0.1 k/uL (0-0.2); Basophils % (A) 1 %; Eosinophils # (A) 0.6 k/uL (0-0.7); Eosinophils % (A) 10 %; HCT 42.3 % (34.0-46.0); HGB 14.2 gm/dL (11.4-16.0); Lymphocytes # (A) 1.4 k/uL (1.0-4.8); Lymphocytes % (A) 21 %; MCH 29.6 pg (25.0-35.0); MCHC 33.7 g/dL (31.0-37.0); MCV 87.9 fL (80.0-100.0); Mean Platelet Volume 7.7; Monocytes # (A) 0.4 k/uL (0-1.0); Monocytes % (A) 7 %; Neutrophils # (A) 3.9 k/uL (1.3-7.7); Neutrophils % (A) 61 %; Platelet Count 270 k/uL (150-450); Poikilocytosis Slight; RBC 4.81 m/uL (3.80-5.40); RDW 14.3 % (11.5-15.5); WBC 6.5 k/uL (3.8-10.6)
[2022-04-03 13:07] LABS: Calcium 8.5 mg/dL (8.4-10.2)
[2022-04-03 13:18] LABS: Potassium 5.2 mmol/L (3.5-5.1)
[2022-04-03] MEDS ORDERED: LIDOCAINE 1% INJ 10MG/ML (5 ML VIAL-PF) SQ ONE ×3 (14:49→14:55)
[2022-04-03] MEDS ORDERED: MIDAZOLAM 2 MG/2 ML VIAL IV ONE (14:49)
[2022-04-03] MEDS ORDERED: fentaNYL (PF) 50 MCG/ML 2 ML AMP IV ONE (14:59)
[2022-04-03] MEDS ORDERED: ceFAZolin 1 GM in SODIUM CHLORIDE 0.9% 100 ML IVPB ONE (15:00)
--- NOTE | 2022-04-03 15:38 | P.OP ---
Date of Procedure: 04/03/22 Preoperative Diagnosis: #1: Myasthenia gravis with need for long-term IV access. #2: Central venous occlusive disease. Postoperative Diagnosis: Same. Procedure(s) Performed: #1: Ultrasound and fluoroscopically guided placement of Cootrt-n-Fqrs via left basilic vein approach Anesthesia: MAC (2 mg of Versed and 50 g of fentanyl), local Surgeon: Dangelo Hoffmann Estimated Blood Loss (ml): 5 Urine output (ml): 0 Pathology: none sent Condition: stable Disposition: no change Indications for Procedure: Patient is a 46-year-old female with a history of myasthenia gravis who presents for placement of Qwfnfp-g-Ipwv for long-term IV medication administration as relates to her myasthenia gravis. Patient recently underwent a CT venous phase scan of her chest which suggested significant central venous occlusive disease. Because of this concern was raised for inability to place a port via left subclavian/internal jugular vein approach. Patient is thus offered Sqbhag-u-Pxac placed in the upper arm area with anticipation of not being able to reach the central venous system however otherwise securing good IV access. The procedure, risk and benefits were discussed with the patient. Patient wished to proceed. Description of Procedure: Patient was brought to the special procedures suite. Her left upper extremity sterilely prepped and draped in usual manner. Patient received 1 g of intravenously administered Ancef in the perioperative phase for prophylactic antibiotic therapy. Utilizing ultrasound the basilic vein was identified in the mid humeral area. Xylocaine was utilized for local anesthesia tissues overlying this venous segment. Through the anesthetized area a micropuncture needle was utilized to cannulate the vein. Once cannulated Softip guidewire was advanced into the vein and its position was confirmed with fluoroscopy. The needle was withdrawn. Proximally 2 cm distal to this area additional Xylocaine was injected into the subcu change tissues. Through this anesthetized area skin incision was made carried down through the subcutaneous tissues and a pocket large enough to house the port was created. The infusion tubing was tunneled between the puncture site and incision and attached to the Iuhnyi-l-Bktx. The Lwxxwp-g-Aedc was then flushed with heparinized saline solution. It was placed within the subcutaneous pocket and secured to the deeper tissues with 3-0 Vicryl suture. Over the previously placed guidewire the micropuncture sheath and dilator were advanced. The dilator and guidewire withdrawn and infusion catheter guidewire was advanced into the central venous system and did reach the level the right atrium without issue. The micropuncture sheath was then withdrawn and over the guidewire the an Aejeck-h-Lbly sheath and dilator were advanced. Dilator and guidewire withdrawn and the catheter tubing which measured to approximate 45 cm to the cavoatrial junction was cut to the proper length and advanced through the sheath and into the central venous system. Blood was easily aspirated through the port and the port was flushed with heparinized saline solution. The incision was closed with 4-0 Vicryl placed in running intradermal fashion. Steri-Strips appropriate dressings were applied. Patient tolerated procedure well and was taken to the outpatient surgery area satisfactory and stable condition. Plan - Discharge Summary Discharge Rx Participant: Yes New Discharge Prescriptions: No Action traZODone HCL 300 mg PO HS Ibuprofen [Motrin] 600 mg PO DIRECTED PRN PRN Reason: Pain ARIPiprazole [Abilify] 5 mg PO HS Nortriptyline [Pamelor] 25 mg PO HS Esomeprazole Magnesium [NexIUM] 40 mg PO W/SUPPER Gabapentin [Neurontin] 800 mg PO TID PRN PRN Reason: neuropathy hydrOXYzine HCL [Atarax] 50 mg PO HS Discharge Medication List traZODone HCL 300 mg PO HS 09/13/17 [History] ARIPiprazole [Abilify] 5 mg PO HS 01/19/20 [History] Ibuprofen [Motrin] 600 mg PO DIRECTED PRN 01/19/20 [History] Nortriptyline [Pamelor] 25 mg PO HS 10/28/21 [History] Esomeprazole Magnesium [NexIUM] 40 mg PO W/SUPPER 04/02/22 [History] Gabapentin [Neurontin] 800 mg PO TID PRN 04/02/22 [History] hydrOXYzine HCL [Atarax] 50 mg PO HS 04/02/22 [History] Follow up Appointment(s)/Referral(s): Dangelo Hoffmann DO [Doctor of Osteopathic Medicine] - 04/17/22 9:15 am Patient Instructions/Handouts: Moderate Sedation (ED) Activity/Diet/Wound Care/Special Instructions: *NO DRIVING FOR 24 HOURS *YOU MAY SHOWER AFTER 48 HOURS
--- NOTE | 2022-04-03 15:57 | IR ---
EXAMINATION TYPE: IR cvc insert central tunneled DATE OF EXAM: 04/03/2022 COMPARISON: NONE HISTORY: Fluoroscopy time. Fluoroscopy was provided to the referring clinician.
[2022-04-03 16:05] VITALS: BP 121/81
== END 2022-04-03 16:06 | disposition home or self-care (01) ==
LOC: CATHCVL 12:08
PROVIDERS: ATTEND Surgery
DX: G70.00 Myasthenia gravis without (acute) exacerbation (principal); I82.890 Acute embolism and thrombosis of other specified veins; F32.A Depression, unspecified; G43.909 Migraine, unspecified, not intractable, without status migrainosus; Z79.899 Other long term (current) drug therapy; Z90.49 Acquired absence of other specified parts of digestive tract; Z90.710 Acquired absence of both cervix and uterus; Z98.890 Other specified postprocedural states; Z83.3 Family history of diabetes mellitus; Z83.42 Family history of familial hypercholesterolemia; Z82.49 Family history of ischemic heart disease and other diseases of the circulatory system; Z83.49 Family history of other endocrine, nutritional and metabolic diseases
CPT/HCPCS: 80048; 85025; 36571; C1769 ×2; J2250; J0690; J2001; J3010

== ENCOUNTER → 2022-07-29 | Outpatient (CLI) | payer MEDICARE ==
--- NOTE | 2022-07-29 14:02 | MR ---
EXAMINATION TYPE: MR knee RT wo con DATE OF EXAM: 07/29/2022 COMPARISON: Right knee radiograph 06/24/2022. HISTORY: Right knee pain, falls. TECHNIQUE: Multiplanar, multisequence imaging of the right knee is performed without IV contrast. FINDINGS: MENISCI: The lateral meniscus demonstrate a normal appearance. There is increased PD and T2 signal w ithin the posterior horn of the medial meniscus without definitive extension to the articular surfac e. LIGAMENTS AND TENDONS: The anterior cruciate ligament, posterior cruciate ligament, medial collatera l ligament, fibular collateral ligament, and patellar retinacula are within normal limits. The baeza lar tendon, quadriceps tendon, IT band, pes anserinus tendons, semimembranosus tendon, popliteus tend on, and biceps femoris tendon are all within normal limits. OSSEOUS STRUCTURES AND CARTILAGE: The medial and lateral facet cartilage of the patellofemoral joint demonstrates areas of heterogeneous/ fissuring signal with underlying subchondral cystic changes. Th e cartilage of the medial knee joint and lateral knee joint compartments are intact. The bone marrow signal intensity is within normal limits. No suprapatellar joint effusion identified. Prepatellar soft tissue edema. No popliteal fossa/Lopez's cyst. IMPRESSION: 1. Possible intrasubstance tear versus degeneration within the posterior horn the medial meniscus wi thout definitive full-thickness tear. 2. Patellofemoral chondromalacia as described above.
== END | disposition home or self-care (01) ==
LOC: RADMRIMAIN 13:01
PROVIDERS: ATTEND Orthopaedic Surgery
DX: M22.41 Chondromalacia patellae, right knee (principal)

== ENCOUNTER → 2022-09-18 | Outpatient (CLI) | payer MEDICARE ==
[2022-09-18 18:09] LABS: Basophils # (A) 0.04 X 10*3/uL (0.00-0.10); Basophils % (A) 0.5 %; Eosinophils # (A) 0.15 X 10*3/uL (0.04-0.35); Eosinophils % (A) 1.8 %; HCT 43.7 % (37.2-46.3); HGB 14.6 g/dL (12.0-15.0); Immature Grans, Automated 0.5 %; Lymphocytes # (A) 1.35 X 10*3/uL (0.90-5.00); Lymphocytes % (A) 16.6 %; MCH 29.9 pg (27.0-32.0); MCHC 33.4 g/dL (32.0-37.0); MCV 89.4 fL (80.0-97.0); Mean Platelet Volume 10.8 fL (9.5-12.2); Monocytes # (A) 0.65 X 10*3/uL (0.20-1.00); NRBC Per 100 WBC 0 /100 WBCS (0.0-0.0); Neutrophils % (A) 72.6 %; Platelet Count 240 X 10*3/uL (140-440); RBC 4.89 X 10*6/uL (4.10-5.20); RDW 13.8 % (11.5-14.5); WBC 8.13 X 10*3/uL (4.50-10.00)
== END | disposition home or self-care (01) ==
LOC: LABPAT 10:43
PROVIDERS: ATTEND Orthopaedic Surgery
DX: Z01.818 Encounter for other preprocedural examination (principal); M23.91 Unspecified internal derangement of right knee; I25.2 Old myocardial infarction; R94.31 Abnormal electrocardiogram [ECG] [EKG]
CPT/HCPCS: 85025; 93005

== ENCOUNTER 2022-10-01 08:55 | Day surgery (SDC) | payer MEDICARE ==
[2022-09-26 13:42] VITALS: BMI 37.9
--- NOTE | 2022-09-30 19:34 | HP ---
HISTORY AND PHYSICAL DATE OF SCHEDULED SURGERY: 10/01/2022. HISTORY OF PRESENT ILLNESS: Ann Menchaca is a 47-year-old patient seen with progressive right knee pain. We discussed options for treatment, she elected to proceed with right knee arthroscopy. Consent is obtained. PAST MEDICAL HISTORY: Depression. PAST SURGICAL HISTORY: Cholecystectomy, hysterectomy, knee arthroscopy, and thyroidectomy. DAILY MEDICATIONS: 1. Abilify. 2. Trazodone. 3. Motrin. ALLERGIES: None. SOCIAL HISTORY: She denies tobacco use. PHYSICAL EVALUATION OF THE RIGHT KNEE: Range of motion is 0-130. Mild effusion. Tenderness along medial lateral joint lines. Positive medial Byron's. Positive lateral Byron's. Ligaments stable. Hip rotation without pain. Distal neurovascular exam intact. RADIOGRAPHS: Right knee radiographs revealed mild osteoarthritis MRI right knee revealed an undersurface medial meniscal tear and chondromalacia. IMPRESSION: Internal derangement of right knee with medial meniscal tear. PLAN: Right knee arthroscopy with partial medial meniscectomy and debridement. MMODL / IJN: [id number] /
[~2022-10-01 08:55] MED LIST changes: +DEXAMETHASONE SOD PHOSPHATE 4 MG/ML 1 ML VIAL IV ONE; +HYDROmorphone 0.5 MG/0.5 ML SYRINGE IVP PRN; +LACTATED RINGERS 1,000 ML IV SCH; +LIDOCAINE 1% (10MG/ML) FOR IV START INTRADERMA PRN; +ONDANSETRON 4 MG/2 ML VIAL IVP ONE; +SCOPOLAMINE 1 MG/72 HR PATCH TRANSDERM ONE; -SODIUM CHLORIDE 0.9% 1,000 ML in EMPTY BAG 1 BAG IV ONE
[2022-10-01] MEDS ORDERED: MIDAZOLAM 2 MG/2 ML VIAL IVP ONE (10:03)
[2022-10-01] MEDS ORDERED: SUCCINYLCHOLINE CHLORIDE 200 MG/10 ML VIAL IV ONE (10:11)
[2022-10-01] MEDS ORDERED: HYDROmorphone (PF) 1 MG/ML ONE (10:11)
[2022-10-01] MEDS ORDERED: KETOROLAC 15 MG/ML 1 ML VIAL ONE (10:11)
[2022-10-01] MEDS ORDERED: PROPOFOL 10 MG/ML 20 ML VIAL IV ONE (10:11)
[2022-10-01] MEDS ORDERED: LIDOCAINE 2% INJ 20 MG/ML (2 ML VIAL) ONE (10:11)
[2022-10-01] MEDS ORDERED: fentaNYL (PF) 50 MCG/ML 2 ML AMP ONE (10:11)
[2022-10-01] MEDS ORDERED: BUPIVACAIN-EPI 0.25%-1:200,000 30 ML VIAL INTRAARTIC ONE ×2 (10:25→10:44)
--- NOTE | 2022-10-01 10:58 | P.OP ---
Date of Procedure: 10/01/22 Preoperative Diagnosis: Internal derangement right knee Postoperative Diagnosis: 1. Tear medial meniscus right knee 2. Grade 2 chondromalacia medial femoral condyle right knee 3. Reactive synovitis medial and suprapatellar compartments right knee Procedure(s) Performed: 1. Arthroscopic partial medial meniscectomy right knee 2. Arthroscopic chondroplasty medial femoral condyle right knee 3. Arthroscopic partial synovectomy medial and suprapatellar compartments right knee Anesthesia: GINAA, local Surgeon: Issac Dailey Estimated Blood Loss (ml): 7 Pathology: none sent Condition: stable Disposition: PACU Indications for Procedure: 47-year-old patient seen with progressive right knee pain. After treatment options were discussed, she elected to proceed with arthroscopy. Operative Findings: See description of procedure Description of Procedure: Patient was taken to the operative suite. Patient underwent a general anesthetic by the department of anesthesia. Patient was given preoperative antibiotics. The right lower extremity was placed in a well-padded arthroscopic leg carrillo. The right leg was prepped and draped in the normal sterile orthopedic fashion. A lateral parapatellar and suprapatellar incision was made. Trochars were inserted. Arthroscopy was initiated. Suprapatellar pouch revealed diffuse thick reactive synovitis. The patellofemoral joint appeared to articulate congruently. There was grade 1 chondromalacia with no significant osteochondral tear being present. The scope was guided into the medial gutter. No loose body or plica were identified. The scope was then guided into the medial compartment. A medial parapatellar incision was made. Trocar inserted followed by probe. There was a radial tear posterior horn medial meniscus. There was some thick reactive synovitis anteriorly. There was area of grade 2 chondromalacia medial femoral condyle with a large osteochondral flap tear present. I performed a partial medial meniscectomy getting down to stable meniscal tissue. I performed a chondroplasty of the medial femoral condyle getting down to stable osteochondral tissue. I performed a partial synovectomy decompressing the reactive synovitis. The residual meniscus was stable. The residual osteochondral surface was stable. There was good decompression of the synovitis. Scope and probe were then guided into the intercondylar notch. Cruciates were identified, probed and found to be stable. The scope and probe were then guided into lateral compartment. Lateral meniscus was probed and was found to be stable. There was no significant chondromalacia lateral compartment. There was no significant synovitis. The scope was in guided back into the suprapatellar compartment. I introduced a motorized shaver into the suprapatellar compartment. I debrided some piecemeal fragments of meniscus I encountered. I performed a partial synovectomy. The shaver was removed. There was good decompression of the synovitis. I took one more look around the entire knee, no residual debris. Instruments were now removed from the joint. The joint was infiltrated with .25% Marcaine. Steri-Strips were applied to the portal sites. Sterile dressings were applied. The patient was placed into a RAY hose. No tourniquet was utilized. The patient was awakened, transferred to a bed and taken to recovery stable satisfactory condition.
[2022-10-01 11:02] VITALS: TEMP 97.3
[2022-10-01] MEDS ORDERED: HYDROmorphone 0.5 MG/0.5 ML SYRINGE IVP ONE ×2 (11:09→11:13)
[2022-10-01 11:52] VITALS: RESP 20
[2022-10-01] MEDS ORDERED: HYDROcodone/APAP 5-325MG 1 EACH TAB ONE (11:55)
[2022-10-01] MEDS ORDERED: HYDROcodone/APAP 5-325MG 1 EACH TAB PO ONE (11:56)
[2022-10-01 12:47] VITALS: BP 123/85; PULSE 70
== END 2022-10-01 12:50 | disposition home or self-care (01) ==
LOC: OR 08:55
PROVIDERS: ATTEND Orthopaedic Surgery
DX: S83.241A Other tear of medial meniscus, current injury, right knee, initial encounter (principal); M94.261 Chondromalacia, right knee; F32.A Depression, unspecified; Z79.1 Long term (current) use of non-steroidal anti-inflammatories (NSAID); Z79.899 Other long term (current) drug therapy; F12.90 Cannabis use, unspecified, uncomplicated; F41.9 Anxiety disorder, unspecified; G43.909 Migraine, unspecified, not intractable, without status migrainosus; G70.00 Myasthenia gravis without (acute) exacerbation; K21.9 Gastro-esophageal reflux disease without esophagitis; M65.9 Synovitis and tenosynovitis, unspecified; X58.XXXA Exposure to other specified factors, initial encounter; Z90.49 Acquired absence of other specified parts of digestive tract; Z90.710 Acquired absence of both cervix and uterus
CPT/HCPCS: 29881; 29876; J2250; J0330; J1100; J0690; J2405; J3010; J1170 ×2; J1885; J2704; J2001

== ENCOUNTER → 2023-02-13 | Outpatient (CLI) | payer MEDICARE ==
--- NOTE | 2023-02-16 10:12 | MM ---
Reason for Exam: Screening (asymptomatic). Last mammogram was performed 1 year(s) and 1 month(s) ago. Patient History: Menarche at age 17. First Full-Term at age 30. Hysterectomy at age 39. Hormonal Contraceptives for 17 years from age 18 until age 35. Paternal grandmother had breast cancer, age 70. Maternal grandmother had breast cancer, age 70. Paternal aunt had breast cancer, age 70. Risk Values: Trang 5 year model risk: 0.9%. NCI Lifetime model risk: 9.6%. Prior Study Comparison: 02/11/2019 Bilateral Screening Mammogram, [facility]. 02/05/2021 Bilateral Screening Mammogram, [facility]. 02/06/2022 Bilateral MG 3D screening mammo w/cad, [facility]. Tissue Density: The breast tissue is heterogeneously dense. This may lower the sensitivity of mammography. Findings: Analyzed By CAD. There is no suspicious group of microcalcifications or new suspicious mass in either breast. Overall Assessment: Negative, BI-RAD 1 Management: Screening Mammogram of both breasts in 1 year. A clinical breast exam by your physician is recommended on an annual basis and results should be correlated with mammographic findings. Electronically signed and approved by: Wali Faria D.O.
== END | disposition home or self-care (01) ==
LOC: RADMAMWWP 15:03
PROVIDERS: ATTEND Family Medicine
DX: Z12.31 Encounter for screening mammogram for malignant neoplasm of breast (principal); Z80.3 Family history of malignant neoplasm of breast
CPT/HCPCS: 77063; 77067

== ENCOUNTER → 2023-04-28 | Outpatient (CLI) | payer MEDICARE ==
[2023-04-28 12:29] LABS: Chol/HDL Ratio 6.33 Ratio; LDL Cholesterol,Calculated 126.1 mg/dL (0.0-131.0)
[2023-04-28 12:30] LABS: Basophils # (A) 0.05 X 10*3/uL (0.00-0.10); Basophils % (A) 0.6 %; Eosinophils # (A) 0.32 X 10*3/uL (0.04-0.35); Eosinophils % (A) 3.7 %; HCT 44.1 % (37.2-46.3); HGB 14.6 d/dL (12.0-15.0); Lymphocytes % (A) 19.5 %; MCHC 33.1 d/dL (32.0-37.0); MCV 87.7 FL (80.0-97.0); Mean Platelet Volume 11.9 FL (9.5-12.2); Monocytes # (A) 0.83 X 10*3/uL (0.20-1.00); Monocytes % (A) 9.5 %; NRBC Per 100 WBC 0 X 10*3/uL (0.00-0.01); Neutrophils % (A) 66.5 %; Platelet Count 172 X 10*3/uL (140-440); RBC 5.03 X 10*6/uL (4.10-5.20); RBC Morphology Normal (Normal); RDW 13.3 % (11.5-14.5); WBC 8.72 X 10*3/uL (4.50-10.00)
[2023-04-28 12:47] LABS: ALT 19 U/L (8-44); AST 19 U/L (13-35); Albumin 4.2 d/dL (3.8-4.9); Albumin/Globulin Ratio 1.45 Ratio (1.60-3.17); Alkaline Phosphatase 48 U/L (41-126); BUN/Creat Ratio 13.17 Ratio (12.00-20.00); Blood Urea Nitrogen 15.8 mg/dL (9.0-27.0); Calcium 8.9 mg/dL (8.7-10.3); Carbon Dioxide 23.7 mmol/L (21.6-31.8); Chloride 107 mmol/L (96-109); Globulin 2.9 d/dL (1.6-3.3); Glucose 109 mg/dL (70-110); Potassium 4.5 mmol/L (3.5-5.5); Sodium 140 mmol/L (135-145); Total Bilirubin <0.2 mg/dL (0.3-1.2); Total Protein 7.1 d/dL (6.2-8.2); Vitamin B12 <150.0 pg/mL (200.0-944.0)
== END | disposition home or self-care (01) ==
LOC: LABWHC1 07:21
PROVIDERS: ATTEND Family Medicine
DX: Z00.00 Encounter for general adult medical examination without abnormal findings (principal); D51.9 Vitamin B12 deficiency anemia, unspecified
CPT/HCPCS: 36415; 80053; 80061; 82306; 82607; 84443; 85025

== ENCOUNTER → 2023-08-24 | Outpatient (CLI) | payer MEDICARE ==
--- NOTE | 2023-08-30 16:52 | MR ---
EXAMINATION TYPE: MR knee RT wo con DATE OF EXAM: 08/24/2023 COMPARISON: Outside radiograph 08/18/2023. Previous MRI 07/29/2022 HISTORY: 48-year-old female M25.561, Right knee pain, injury 2 mos ago. Hx surgery 2022. TECHNIQUE: Multiplanar, multisequence imaging of the right knee is performed without IV contrast. FINDINGS: ACL, PCL, MCL, and LCL complex are intact. Redemonstrated obliquely oriented abnormal signal at the junction of the posterior horn and body of t he medial meniscus. The signal changes are slightly more pronounced than on the prior exam. Moderate irregular cartilage thinning along the mid central aspect of the medial femoral condyle. Lateral meniscus is intact. Overall lateral compartment articular cartilage volume is maintained. Moderate irregular cartilage loss especially along the superior aspect of the medial patellar facet a s well as along the inferior aspect of the lateral patellar facet. Changes appear relatively similar to prior exam. Mild anterior soft tissue swelling. Extensor mechanism is intact. Small to moderate knee joint effusion. Trace early Lopez's cyst. Normal popliteal artery anatomy and multiple. No suspicious bone marrow replacement. IMPRESSION: 1. Obliquely oriented signal at the junction of the posterior horn and body of the medial meniscus is slightly more pronounced compared to 07/29/2022. Query postsurgical change versus recurrent tear. 2. Development of moderate irregular cartilage loss focally along the medial central aspect of the me dial femoral condyle. 3. Similar mild patellofemoral compartment OA. 4. Lctmd-ar-rztzjtvs knee joint effusion and trace early Lopez cyst.
== END | disposition home or self-care (01) ==
LOC: RADMRIMAIN 11:08
PROVIDERS: ATTEND Orthopaedic Surgery
DX: M17.11 Unilateral primary osteoarthritis, right knee (principal); M25.461 Effusion, right knee; M71.21 Synovial cyst of popliteal space [Baker], right knee; M23.8X1 Other internal derangements of right knee

== ENCOUNTER → 2023-09-16 | Outpatient (CLI) | payer MEDICARE ==
[2023-09-16 15:15] LABS: Basophils # (A) 0.04 X 10*3/uL (0.00-0.10); Basophils % (A) 0.5 %; Eosinophils # (A) 0.76 X 10*3/uL (0.04-0.35); Eosinophils % (A) 8.6 %; HCT 41.9 % (37.2-46.3); HGB 14.1 g/dL (12.0-15.0); Lymphocytes # (A) 1.71 X 10*3/uL (0.90-5.00); Lymphocytes % (A) 19.4 %; MCHC 33.7 g/dL (32.0-37.0); Mean Platelet Volume 10.7 FL (9.5-12.2); Monocytes # (A) 0.75 X 10*3/uL (0.20-1.00); Monocytes % (A) 8.5 %; NRBC Per 100 WBC 0 X 10*3/uL (0.00-0.01); Neutrophils # (A) 5.54 X 10*3/uL (1.80-7.70); Neutrophils % (A) 62.7 %; Platelet Count 219 X 10*3/uL (140-440); RBC 4.87 X 10*6/uL (4.10-5.20); RDW 13.3 % (11.5-14.5); WBC 8.83 X 10*3/uL (4.50-10.00)
[2023-09-16 15:20] LABS: Anion Gap 10.5 mmol/L (4.00-12.00); Carbon Dioxide 22.5 mmol/L (21.6-31.8); Potassium 4.7 mmol/L (3.5-5.5)
== END | disposition home or self-care (01) ==
LOC: LABPAT 10:18
PROVIDERS: ATTEND Orthopaedic Surgery
DX: Z01.812 Encounter for preprocedural laboratory examination (principal); M23.91 Unspecified internal derangement of right knee
CPT/HCPCS: 36415; 80051; 85025

== ENCOUNTER → 2023-09-23 | Day surgery (SDC) | payer MEDICARE ==
[2023-09-18 10:19] VITALS: BMI 37.8
--- NOTE | 2023-09-22 22:16 | HP ---
HISTORY AND PHYSICAL DATE OF SURGERY: 09/23/2023. HISTORY OF PRESENT ILLNESS: Ann Menchaca is a 48-year-old patient seen with progressive right knee pain. We discussed options for treatment. The patient elected to proceed with right knee arthroscopy. Consent regarding procedure was obtained. PAST MEDICAL HISTORY: Depression. PAST SURGICAL HISTORY: Cholecystectomy, hysterectomy, knee arthroscopy. DAILY MEDICATIONS: 1. Prozac. 2. Trazodone. 3. Motrin. ALLERGIES: None. SOCIAL HISTORY: She denies tobacco use. PHYSICAL EVALUATION OF THE RIGHT KNEE: Range of motion is +3 to 125 degrees. Mild effusion. Tenderness, medial joint line. Positive medial Byron's. Ligaments stable. Hip rotation without pain. Distal neurovascular exam is intact. IMAGING STUDIES: Right knee radiographs revealed mild to moderate osteoarthritic changes involving the medial compartment. MRI of right knee revealed medial meniscal tear, moderate osteoarthritis, and intra- articular effusion. IMPRESSION: 1. Internal derangement of right knee with medial meniscal tear. 2. Right knee moderate osteoarthritis. PLAN: Right knee arthroscopy with partial medial meniscectomy and debridement. MMODL / IJN: [id number] /
[~2023-09-23] MED LIST changes: +BUPIVACAINE (PF) 0.25% 30 ML VIAL INTRAARTIC ONE; +HYDROcodone/APAP 5-325MG 1 EACH TAB ONE; +HYDROcodone/APAP 5-325MG 1 EACH TAB PO ONE; +HYDROmorphone (PF) 1 MG/ML ONE; +HYDROmorphone 0.5 MG/0.5 ML SYRINGE IVP ONE; +KETOROLAC 15 MG/ML 1 ML VIAL IVP ONE; +LIDOCAINE 1% INJ 10MG/ML (20 ML MDV) ONE; +MIDAZOLAM 2 MG/2 ML VIAL ONE; +PROPOFOL 10 MG/ML 20 ML VIAL IV ONE; -SCOPOLAMINE 1 MG/72 HR PATCH TRANSDERM ONE; +droPERidol 5 MG/2 ML VIAL IVP ONE; +fentaNYL (PF) 50 MCG/ML 2 ML AMP ONE
[2023-09-23 10:41] VITALS: TEMP 97
--- NOTE | 2023-09-23 12:33 | P.OP ---
Date of Procedure: 09/23/23 Preoperative Diagnosis: Internal derangement right knee Postoperative Diagnosis: 1. Tear medial meniscus right knee 2. Grade 4 chondromalacia medial femoral condyle right knee 3. Reactive synovitis medial, lateral and suprapatellar compartments right knee Procedure(s) Performed: 1. Arthroscopic partial medial meniscectomy right knee 2. Arthroscopic microfracture medial femoral condyle right knee 3. Arthroscopic partial synovectomy medial, lateral and patellar compartments right knee 4. Arthroscopic chondroplasty medial femoral condyle right knee Anesthesia: GINAA, local Surgeon: Issac Dailey Estimated Blood Loss (ml): 7 Pathology: none sent Condition: stable Disposition: PACU Indications for Procedure: 48-year-old patient seen with progressive right knee pain. After having treatment options discussed, she elected to proceed with arthroscopy. Operative Findings: See description of procedure Description of Procedure: Patient was taken to the operative suite. Patient underwent a general anesthetic by the department of anesthesia. Patient was given preoperative antibiotics. The right lower extremity was placed in a well-padded arthroscopic leg carrillo. The right leg was prepped and draped in the normal sterile orthopedic fashion. A lateral parapatellar and suprapatellar incision was made. Trochars were inserted. Arthroscopy was initiated. Suprapatellar pouch revealed diffuse thick reactive synovitis. The patellofemoral joint appeared to articulate congruently. There was grade 1 chondromalacia of the patella without significant tears. The scope was guided into the medial gutter. No loose bodies or plica were identified. The scope was then guided into the medial compartment. A medial parapatellar incision was made. Trocar inserted followed by probe. There was a radial tear posterior horn medial meniscus. There were grade 3/4 chondromalacia changes involving the central weightbearing surface of the medial femoral condyle with osteochondral flap tears present. There was th ick reactive synovitis anteriorly. I performed a partial medial meniscectomy getting down to stable meniscal tissue. I performed a chondroplasty of the medial femoral condyle getting down to stable osteochondral tissue. I performed a partial synovectomy compressing the reactive synovitis anteriorly. I did note of exposed bone weightbearing surface medial femoral condyle measuring approximately 1 cm. I introduced a microfracture awl and performed a microfracture to that area penetrating the bone with resultant bleeding at the microfracture site. The residual meniscus was stable. The residual osteochondral surface was stable. There was good decompression of the synovitis. Scope and probe were then guided into the intercondylar notch. Cruciates were identified, probed and found to be stable. The scope and probe were then guided into lateral compartment. Lateral meniscus was found to be stable. There were mild grade 1 chondromalacia changes along lateral compartment without tears. There was some reactive synovitis anteriorly. I introduced a motorized shaver and performed a partial synovectomy. Shaver was removed. There was good decompression of the synovitis. The scope was in guided back into the suprapatellar compartment. I introduced a motorized shaver into the suprapatellar compartment. I performed a partial synovectomy. Shaver was now removed. There was good decompression of the synovitis. Instruments were now removed from the joint. The joint was infiltrated with .25% Marcaine. Steri-Strips were applied to the portal sites. Sterile dressings were applied. The patient was placed into a RAY hose. No tourniquet was utilized. The patient was awakened, transferred to a bed and taken to recovery stable satisfactory condition.
[2023-09-23 13:27] VITALS: RESP 14
[2023-09-23 14:14] VITALS: BP 109/75; PULSE 57
== END | disposition home or self-care (01) ==
LOC: OR 10:13
PROVIDERS: ATTEND Orthopaedic Surgery
DX: S83.241A Other tear of medial meniscus, current injury, right knee, initial encounter (principal); M94.261 Chondromalacia, right knee; M65.161 Other infective (teno)synovitis, right knee; M17.11 Unilateral primary osteoarthritis, right knee; F32.A Depression, unspecified; Z90.710 Acquired absence of both cervix and uterus; Z90.49 Acquired absence of other specified parts of digestive tract; Z98.890 Other specified postprocedural states; Z79.899 Other long term (current) drug therapy; G70.00 Myasthenia gravis without (acute) exacerbation; X58.XXXA Exposure to other specified factors, initial encounter
CPT/HCPCS: 29881; 29876; 29879; J2250; J1100; J0690; J2405; J2001; J3010; J1170 ×2; J1885; J2704; J0665

== ENCOUNTER → 2024-02-22 | Outpatient (CLI) | payer MEDICARE ==
--- NOTE | 2024-02-23 09:09 | MM ---
Reason for Exam: Screening (asymptomatic). Last screening mammogram was performed 12 month(s) ago. Patient History: Menarche at age 17. First Full-Term at age 30. Hysterectomy at age 39. Hormonal Contraceptives for 17 years from age 18 until age 35. Paternal grandmother had breast cancer, age 70. Maternal grandmother had breast cancer, age 70. Paternal aunt had breast cancer, age 70. Risk Values: Trang 5 year model risk: 0.9%. NCI Lifetime model risk: 9.5%. Prior Study Comparison: 02/05/2021 Bilateral Screening Mammogram, [facility]. 02/06/2022 Bilateral MG 3D screening mammo w/cad, [facility]. 02/13/2023 Bilateral MG 3D screening mammo w/cad, [facility]. Tissue Density: The breasts are heterogeneously dense, which may obscure small masses. Findings: Analyzed By CAD. There is no suspicious group of microcalcifications or new suspicious mass in either breast. Overall Assessment: Negative, BI-RAD 1 Management: Screening Mammogram of both breasts in 1 year. . Patient should continue monthly self-breast exams. A clinical breast exam by your physician is recommended on an annual basis. This exam should not preclude additional follow-up of suspicious palpable abnormalities. Note on Trang scores and lifetime risk: 1. A Trang score greater than 3% is considered moderate risk. If this is the case, consider specialist referral to assess eligibility for a risk reducing agent. 2. If overall lifetime risk for the development of breast cancer is 20% or higher, the patient may qualify for future screening with alternating mammogram and breast MRI. Electronically signed and approved by: Morro Fall M.D. Radiologis
== END | disposition home or self-care (01) ==
LOC: RADMAMWWP 08:33
PROVIDERS: ATTEND Family Medicine
DX: Z12.31 Encounter for screening mammogram for malignant neoplasm of breast (principal); Z80.3 Family history of malignant neoplasm of breast
CPT/HCPCS: 77063; 77067

== ENCOUNTER → 2024-03-30 | Outpatient (CLI) | payer MEDICARE ==
--- NOTE | 2024-03-30 12:47 | US ---
EXAMINATION TYPE: US kidneys/renal and bladder DATE OF EXAM: 03/30/2024 COMPARISON: NONE CLINICAL INDICATION: Female, 48 years old with history of N18.30 CHRONIC KIDNEY DISEASE, STAGE 3; CKD 3 EXAM MEASUREMENTS: Right Kidney: 10 x 4.5 x 4.5 cm Left Kidney: 10.7 x 5.6 x 4.7 cm Right Kidney: No hydronephrosis or masses seen Left Kidney: No hydronephrosis or masses seen Bladder: wnl Bilateral Jets seen: Yes There is no evidence for hydronephrosis at this point in time. No nephrolithiasis is seen. No arvin s are identified. The urinary bladder is anechoic. Bilateral ureteral jets are seen. IMPRESSION: No discrete abnormality seen
== END | disposition home or self-care (01) ==
LOC: RADUSWWP 11:19
PROVIDERS: ATTEND Family Medicine
DX: N18.30 Chronic kidney disease, stage 3 unspecified (principal)
CPT/HCPCS: 76770

== ENCOUNTER → 2025-01-03 | Outpatient (CLI) | payer MEDICARE ==
--- NOTE | 2025-01-03 13:48 | MR ---
INDICATION: Patient age:Female; 49 years old; Reason for study: LOW BACK PAIN M54.5 M54.16; [facility]. COMPARISONS: Lumbar spine radiograph 09/27/2024, 11/24/2016. TECHNIQUE: Multi planar, multi sequence imaging was performed utilizing: T1-weighted, T2-weighted, a nd turbo inversion recovery imaging of the lumbar spine. The patient was not given contrast. FINDINGS: The lumbar vertebral bodies do have preserved heights and alignment. Intervertebral disc signal is maintained. T1/T2 hyperintense lesions within the T11, L1, and L4 vertebral bodies. These r epresent benign vertebral hemangiomas. The conus medullaris and the distal spinal cord do appear unre markable with regards to their signal intensity and morphology. Posterior midline subcutaneous edema. L1-L2: No significant disc pathology is identified. The spinal canal and neural foramen are patent. L2-L3: No significant disc pathology is identified. The spinal canal and neural foramen are patent. L3-L4: No significant disc pathology is identified. The spinal canal and neural foramen are patent. L4-L5: No significant disc pathology is identified. The spinal canal and neural foramen are patent L5-S1: No significant disc pathology is identified. The spinal canal and neural foramen are patent Other significant findings: None. IMPRESSION: No definitive evidence for disc herniation or significant spinal canal stenosis. No significant degen erative disc disease. [facility], , 01/03/2025 1:46 PM
== END | disposition home or self-care (01) ==
LOC: RADMRIMAIN 10:59
PROVIDERS: ATTEND Orthopaedic Surgery
DX: M54.50 Low back pain, unspecified (principal); M54.16 Radiculopathy, lumbar region
CPT/HCPCS: 72148

== ENCOUNTER → 2025-01-30 | Outpatient (CLI) | payer MEDICARE ==
--- NOTE | 2025-01-31 07:24 | MR ---
EXAMINATION TYPE: MR knee RT wo con DATE OF EXAM: 01/30/2025 COMPARISON: Prior right knee MRI August 24, 2023 HISTORY: Right knee pain anteriorly and medially for at least 6 months, popped. TECHNIQUE: Multiplanar, multisequence images of the knee is performed without IV contrast. FINDINGS: MEDIAL MENISCUS: Persistent obliquely oriented signal posterior horn towards the central body of the medial meniscus. LATERAL MENISCUS: Anterior and posterior horns are intact without tear. CRUCIATE LIGAMENTS: The anterior and posterior cruciate ligaments are intact and unremarkable. COLLATERAL LIGAMENTS: The medial collateral ligament and lateral collateral ligament complex are inta ct and unremarkable. EXTENSOR MECHANISM: Visualized quadriceps and patellar tendons are intact. EFFUSION: Stable moderate-sized suprapatellar joint effusion. POPLITEAL CYST: Trace popliteal/rowe cyst is redemonstrated. TRICOMPARTMENT SPACES: Mild to moderate tricompartment joint space loss and spurring is redemonstrate d. CARTILAGE: Moderate to severe cartilaginous loss lateral aspect extending posteriorly distal medial f emoral condyle is more prominent from most recent study. Persistent significant chondromalacia patell a along the superior medial aspect of the posterior patella. BONE MARROW SIGNAL: There is persistent area of heterogeneous diminished T1 and increased T2 signal p osterior patella along the superior medial aspect redemonstrated at site of most prominent chondromal acia patella. OTHER: No additional significant abnormality is appreciated. IMPRESSION: 1. Stable oblique signal posterior horn medial meniscus could reflect postsurgical change versus tear . Correlate clinically. 2. Mild to moderate tricompartment degenerative changes are redemonstrated as detailed above. More pr ominent cartilaginous loss lateral aspect distal medial femoral condyle noted. Significant cartilage patella redemonstrated. 3. Moderate-size suprapatellar joint effusion again seen. [facility], , 01/31/2025 7:21 AM
== END | disposition home or self-care (01) ==
LOC: RADMRIMAIN 20:15
PROVIDERS: ATTEND Orthopaedic Surgery
DX: M17.11 Unilateral primary osteoarthritis, right knee (principal)

== ENCOUNTER → 2025-02-22 | Outpatient (CLI) | payer MEDICARE | END | disposition home or self-care (01) | LOC: LABWHC1 08:48 | PROVIDERS: ATTEND Orthopaedic Surgery | DX: Z01.818 Encounter for other preprocedural examination (principal); M23.91 Unspecified internal derangement of right knee | CPT/HCPCS: 36415; 93005 ==

== ENCOUNTER 2025-03-01 07:59 | Day surgery (SDC) | payer MEDICARE ==
[2025-02-27 11:15] VITALS: BMI 36.0
--- NOTE | 2025-03-01 07:39 | HP ---
HISTORY AND PHYSICAL DATE OF SURGERY: 03/01/2025. HISTORY OF PRESENT ILLNESS: Ann Menchaca is a 49-year-old patient, seen with progressive right knee pain. We discussed options regarding treatment. She elected to proceed with right knee arthroscopy. Consent obtained. PAST MEDICAL HISTORY: Depression. PAST SURGICAL HISTORY: Cholecystectomy, hysterectomy, knee arthroscopy. MEDICATIONS: 1. Abilify. 2. Trazodone. 3. Plaquenil. ALLERGIES: None. SOCIAL HISTORY: She denies tobacco use. PHYSICAL EVALUATION OF THE RIGHT KNEE: Range of motion is -2 to 120 degrees. She has a mild effusion. Tenderness, medial joint line. Positive medial Byron's. Ligaments stable. Hip rotation without pain. Distal neurovascular exam intact. IMAGING: Right knee radiographs reveal moderate osteoarthritis. MRI of the right knee revealed medial meniscal tear, moderate osteoarthritis. IMPRESSION: Internal derangement of the right knee medial meniscal tear. PLAN: Right knee arthroscopy with partial medial meniscectomy and debridement. Surgery is scheduled for 03/01/2025. MMODL / IJN: [id number] /
[2025-03-01] MEDS: LACTATED RINGERS 1,000 ML IV SCH (09:13)
[2025-03-01] MEDS: DEXAMETHASONE SOD PHOSPHATE 4 MG/ML 1 ML VIAL IV ONE (09:13)
[2025-03-01] MEDS: ONDANSETRON 4 MG/2 ML VIAL IVP ONE (09:13)
[2025-03-01] MEDS: LACTATED RINGERS 1,000 ML IV ONE (09:13)
[2025-03-01] MEDS: MIDAZOLAM 2 MG/2 ML VIAL IV ONE (09:14)
[2025-03-01] MEDS ORDERED: MIDAZOLAM 2 MG/2 ML VIAL ONE (09:21)
[2025-03-01] MEDS ORDERED: PROPOFOL 10 MG/ML 20 ML VIAL IV ONE (09:21)
[2025-03-01] MEDS ORDERED: KETOROLAC 15 MG/ML 1 ML VIAL ONE (09:21)
[2025-03-01] MEDS ORDERED: HYDROmorphone (PF) 1 MG/ML ONE (09:21)
[2025-03-01] MEDS ORDERED: LIDOCAINE 1% INJ 10MG/ML (20 ML MDV) ONE (09:21)
[2025-03-01] MEDS ORDERED: fentaNYL (PF) 50 MCG/ML 2 ML AMP ONE (09:21)
[2025-03-01] MEDS: ceFAZolin 2 GM in DEXTROSE 5% IN WATER 50 ML IVPB PRN (09:23)
[2025-03-01] MEDS: BUPIVACAINE (PF) 0.25% 30 ML VIAL SQ ONE ×2 (09:34→09:54)
--- NOTE | 2025-03-01 10:14 | P.OP ---
Date of Procedure: 03/01/25 Preoperative Diagnosis: Internal derangement right knee Postoperative Diagnosis: 1. Tear medial and lateral meniscus right knee 2. Grade IV chondromalacia medial femoral condyle right knee 3. Reactive synovitis medial, lateral and suprapatellar compartments right knee Procedure(s) Performed: 1. Arthroscopic partial medial and lateral meniscectomy right knee 2. Arthroscopic microfracture medial femoral condyle right knee 3. Arthroscopic partial synovectomy medial, lateral and suprapatellar compartments right knee Anesthesia: GINAA, local Surgeon: Issac Dailey Estimated Blood Loss (ml): 8 Pathology: none sent Condition: stable Disposition: PACU Indications for Procedure: 49-year-old patient seen with progressive right knee pain. After having treatment options discussed, she elected to proceed with arthroscopy. Operative Findings: See description of procedure Description of Procedure: Patient was taken to the operative suite. Patient underwent a general anesthetic by the department of anesthesia. Patient was given preoperative antibiotics. The right lower extremity was placed in a well-padded arthroscopic leg carrillo. The right leg was prepped and draped in the normal sterile orthopedic fashion. A lateral parapatellar and suprapatellar incision was made. Trochars were inserted. Arthroscopy was initiated. Suprapatellar pouch revealed diffuse thick reactive synovitis. The patellofemoral joint appeared to articulate congruently. There was grade I chondromalacia of the patella without tears. The scope was guided into the medial gutter. No loose bodies or plica were identified. The scope was then guided into the medial compartment. A medial parapatellar incision was made. Trocar inserted followed by probe. There was a radial tear posterior horn medial meniscus. There was near grade III/IV chondromalacia medial femoral condyle with osteochondral flap tears. There was some thick reactive synovitis anteriorly. I performed a partial medial meniscectomy getting down to stable meniscal tissue. I performed a chondroplasty of the medial femoral condyle getting down to stable osteochondral tissue. I performed a partial synovectomy decompressing the reactive synovitis. I did note an area of exposed bone medial femoral condyle measuring just over a centimeter in the central weightbearing surface of the medial femoral condyle. I introduced a 60 degree microfracture awl and I performed a microfracture to that area penetrating the bone with resultant bleeding at the microfracture site. The residual meniscus was probed and was found to be stable. The residual osteochondral surface was stable. There was good decompression of the synovitis. Scope and probe were then guided into the intercondylar notch. Cruciates were identified, probed and found to be stable. The scope and probe were then guided into lateral compartment. There was a radial tear posterior horn lateral meniscus. There was grade I chondromalacia lateral tibial plateau and reactive synovitis anteriorly. I performed a partial lateral meniscectomy getting down to stable meniscal tissue. I performed a partial synovectomy decompressing the reactive synovitis. The residual meniscus was stable. There was good decompression of the synovitis. The scope was in guided back into the suprapatellar compartment. I introduced a motorized shaver into the suprapatellar compartment. I performed a partial synovectomy. The shaver was now removed. There was good decompression of the synovitis. I now took 1 more look around the entire knee, no residual debris. Instruments were now removed from the joint. The joint was infiltrated with .25% Marcaine. Steri-Strips were applied to the portal sites. Sterile dressings were applied. The patient was placed into a RAY hose. No tourniquet was utilized. The patient was awakened, transferred to a bed and taken to recovery stable satisfactory condition.
[2025-03-01] MEDS: HYDROmorphone 0.5 MG/0.5 ML SYRINGE IVP PRN (10:16)
[2025-03-01 10:20] VITALS: TEMP 97
[2025-03-01 10:57] VITALS: RESP 16
[2025-03-01 11:21] VITALS: BP 131/71; PULSE 69
== END 2025-03-01 11:26 | disposition home or self-care (01) ==
LOC: OR 07:59
PROVIDERS: ATTEND Orthopaedic Surgery
DX: S83.241A Other tear of medial meniscus, current injury, right knee, initial encounter (principal); S83.281A Other tear of lateral meniscus, current injury, right knee, initial encounter; M65.961 Unspecified synovitis and tenosynovitis, right lower leg; M22.41 Chondromalacia patellae, right knee; F32.A Depression, unspecified; Z90.49 Acquired absence of other specified parts of digestive tract; Z90.710 Acquired absence of both cervix and uterus; Z79.899 Other long term (current) drug therapy; X58.XXXA Exposure to other specified factors, initial encounter
CPT/HCPCS: 29879; 29880; J2250; J1100; J0690; J2405; J2003; J3010; J1171 ×2; J1885; J2704; J0665

== ENCOUNTER → 2025-03-29 | Outpatient (CLI) | payer MEDICARE ==
--- NOTE | 2025-03-29 10:23 | MM ---
Reason for Exam: Screening (asymptomatic). Last mammogram was performed 1 year(s) and 1 month(s) ago. Patient History: Menarche at age 17. First Full-Term at age 30. Hysterectomy at age 39. Perimenopausal. Hormonal Contraceptives for 17 years from age 18 until age 35. Paternal grandmother had breast cancer, age 70. Maternal grandmother had breast cancer, age 70. Paternal aunt had breast cancer, age 70. Risk Values: Trang 5 year model risk: 0.9%. NCI Lifetime model risk: 9.3%. Prior Study Comparison: 01/04/2018 Bilateral Screening Mammogram, [facility]. 02/11/2019 Bilateral Screening Mammogram, [facility]. 02/05/2021 Bilateral Screening Mammogram, [facility]. 02/06/2022 Bilateral MG 3D screening mammo w/cad, [facility]. 02/13/2023 Bilateral MG 3D screening mammo w/cad, [facility]. 02/22/2024 Bilateral MG 3D screening mammo w/cad, [facility]. Tissue Density: The breasts are heterogeneously dense, which may obscure small masses. Findings: Analyzed By CAD. There is no suspicious group of microcalcifications or new suspicious mass in either breast. Overall Assessment: Negative, BI-RAD 1 Management: Screening Mammogram of both breasts in 1 year. . Patient should continue monthly self-breast exams. A clinical breast exam by your physician is recommended on an annual basis. This exam should not preclude additional follow-up of suspicious palpable abnormalities. Note on Trang scores and lifetime risk: 1. A Trang score greater than 3% is considered moderate risk. If this is the case, consider specialist referral to assess eligibility for a risk reducing agent. 2. If overall lifetime risk for the development of breast cancer is 20% or higher, the patient may qualify for future screening with alternating mammogram and breast MRI. [facility], , 03/29/2025 10:15 AM. Electronically signed and approved by: Morro Fall M.D. Radiolog[facility]
== END | disposition home or self-care (01) ==
LOC: RADMAMWWP 09:45
PROVIDERS: ATTEND Family Medicine
DX: Z12.31 Encounter for screening mammogram for malignant neoplasm of breast (principal); R92.333 Mammographic heterogeneous density, bilateral breasts; Z80.3 Family history of malignant neoplasm of breast; Z92.0 Personal history of contraception
CPT/HCPCS: 77063; 77067